=== PATIENT | female | born 1970 | race Caucasian/White ===

== ENCOUNTER 2020-03-03 13:56 | Outpatient (CLI) | payer OTHER, SELFPAY ==
--- NOTE | 2020-03-03 14:04 | XRR_ITS ---
PROCEDURE INFORMATION: Exam: XR Chest, 2 Views Exam date and time: 03/03/2020 2:18 PM Age: 49 years old Clinical indication: Cough and shortness of breath; Prior surgery; Surgery type: Left breast TECHNIQUE: Imaging protocol: XR of the chest Views: 2 views. COMPARISON: No relevant prior studies available. FINDINGS: Tubes, catheters and devices: Bilateral surgical clips overlying the inferior thorax. Lungs: Hyperinflation and interstitial prominence. No acute airspace disease. Pleural space: No pleural effusion. Heart/Mediastinum: No cardiomegaly. Vasculature: Ectasia of the thoracic aorta. Bones/joints: Diminished thoracic kyphosis. XR/XR chest 2V* [id number] IMPRESSION: Hyperinflation and interstitial prominence.
[2020-03-03 14:37] LABS: Basophils % 0.5 %; Eosinophils # 0.3 10^3/uL (0.0-0.8); Eosinophils % 3.9 %; Hematocrit 40.5 % (37.0-47.0); Hemoglobin 13.1 g/dL (11.5-15.3); Lymphocytes # 1.5 10^3/uL (0.8-4.8); Lymphocytes % 20.6 %; Mean Corpuscular HGB Conc 32.3 g/dL (30.0-36.0); Mean Corpuscular Hemoglobin 30.5 pg (28.0-34.0); Mean Corpuscular Volume 94.4 fL (81-99); Mean Platelet Volume 9.7 fL (7.4-10.4); Monocytes # 0.6 10^3/uL (0.2-0.9); Neutrophils # 4.95 10^3/uL (1.8-7.7); Neutrophils % 66.7 %; Nucleated Red Blood Cells % 0 %; Platelet Count 323 10^3/cmm (130-400); Red Blood Count 4.29 10^6/uL (4.1-5.3); Red Cell Distribution Width 12.6 % (12.1-15.1); White Blood Count 7.4 10^3/uL (4.0-10.0)
[2020-03-03 15:14] LABS: Alanine Aminotransferase 20 U/L (0-33); Albumin Level 3.9 g/dL (3.5-5.2); Alkaline Phosphatase 49 IU/L (35-105); Anion Gap 14.8 (5-19); Aspartate Amino Transferase 21 U/L (0-32); Blood Urea Nitrogen 10 mg/dL (6-20); Calcium 9.1 mg/dL (8.5-10.5); Carbon Dioxide 25 mmol/L (22-29); Chloride 102 mmol/L (98-107); Globulin 2.6 g/dL (1.3-4.6); Glomerular Filtration Rate 89.7 mL/min (90-130); Glucose 104 mg/dL (65-115); Osmolality Calculated 285 mOsm/kg (285-295); Potassium 3.8 mmol/L (3.5-5.1); Sodium 138 mmol/L (136-145); Total Bilirubin 0.2 mg/dL (0.15-1.2); Total Protein 6.5 g/dL (6.6-8.7)
[2020-03-04 15:57] LABS: Alternaria Alternata (M6) Ige <0.10 kU/L; Alternaria Class 0; Bermuda Class 0; Bermuda Grass (G2) Ige <0.10 kU/L; Cat Dander (E1) Ige <0.10 kU/L; Cat Dander Class 0; Common Ragweed (Short) (W1) Ig <0.10 kU/L; D. Farinae Class 0; Dermatophagoides Class 0; Dermatophagoides Farinae (D2) <0.10 kU/L; Dermatophagoides Pteronyssinus <0.10 kU/L; Dog Dander (E5) Ige <0.10 kU/L; Dog Dander Class 0; Elm (T8) Ige <0.10 kU/L; Elm Class 0; English Plantain (W9) Ige <0.10 kU/L; English Plantain Class 0; House Dust (Greer) (H1) Ige <0.10 kU/L; House Dust (Hollister- Stier) <0.10 kU/L; House Dust Class 0; Johnson Grass (G10) Ige <0.10 kU/L; Johnson Grass Cl 0; June Grass Class 0; June Grass(Kentucky Blue) (G8) <0.10 kU/L; Lamb'S Quarters (Goose Foot) <0.10 kU/L; Lamb'S Quarters Class 0; Maple (Box Elder) (T1) Ige <0.10 kU/L; Maple Class 0; Meadow Fescue (G4) Ige <0.10 kU/L; Meadow Fescue Class 0; Mucor Racemosus Class 0; Oak (T7) Ige <0.10 kU/L; Oak Class 0; Orchard Grass (Cocksfoot) (G3) <0.10 kU/L; Penicillium Class 0; Penicillium Notatum (M1) Ige <0.10 kU/L; Perennial Rye Grass (G5) Ige <0.10 kU/L; Perennial Rye Grass Class 0; Ragweeed Class 0; Rough Marsh Elder (W16) Ige <0.10 kU/L; Rough Marsh Elder Class 0; Sweet Vernal Class 0; Sweet Vernal Grass (G1) Ige <0.10 kU/L; Timothy Grass (G6) Ige <0.10 kU/L; Timothy Grass Class 0
[2020-03-05 15:52] LABS: Immunoglobulin E 95 kU/L (<OR=114)
[2020-03-05 16:23] LABS: Immunoglobulin E 94 kU/L (<OR=114)
[2020-03-08 17:08] LABS: Aspergillus Fumigatus, Igg Ab, 16.7 mg/L (<=102)
== END 2020-03-03 13:57 | disposition home or self-care (01) ==
LOC: RAD 14:00
PROVIDERS: PCP Nurse Practitioner Family; Visit Provider Internal Medicine Critical Care Medicine
DX: R06.02 Shortness of breath (principal); J45.909 Unspecified asthma, uncomplicated
CPT/HCPCS: 36415; 71046; 80053; 82785; 85025; 86003

== ENCOUNTER → 2020-03-10 11:31 | Outpatient (BNVA) | payer OTHER, SELFPAY | PROVIDERS: Family Provider Nurse Practitioner Family; Visit Provider Internal Medicine Critical Care Medicine | DX: Z11.59 Encounter for screening for other viral diseases (principal) | CPT/HCPCS: 87635 ==

== ENCOUNTER 2020-03-17 09:58 | Outpatient (CLI) | payer OTHER, SELFPAY ==
--- NOTE | 2020-03-17 10:33 | PFTS_ITS ---
Date of Study:03/17/20 Date of Dictation: MECHANICS: Forced vital capacity (FVC) is normal. Forced expiratory volume in one second (FEV1) is normal. FEV1/FVC is normal. FLOW VOLUME LOOP: Normal. LUNG VOLUMES: Total lung capacity (TLC) is elevated. Residual volume (RV) is elevated. DIFFUSING CAPACITY FOR CARBON MONOXIDE: Normal. INTERPRETATION: The pulmonary function tests are normal. The elevated total lung capacity and residual volume are nonspecific. Gas exchange (DLCO) is normal. MTDD
== END 2020-03-17 09:59 | disposition home or self-care (01) ==
LOC: RT 10:02
PROVIDERS: PCP Nurse Practitioner Family; Visit Provider Internal Medicine Critical Care Medicine
DX: R06.02 Shortness of breath (principal); J45.909 Unspecified asthma, uncomplicated
CPT/HCPCS: 94010; 94729

== ENCOUNTER 2020-06-15 13:20 | Outpatient (CLI) | payer OTHER, SELFPAY ==
--- NOTE | 2020-06-15 13:32 | MR_ITS ---
WS: [id number] MRI BRAIN WITH HIGH-RESOLUTION IMAGING THROUGH THE INTERNAL AUDITORY CANALS WITHOUT AND WITH CONTRAST HISTORY: TINNITUS, LEFT EAR COMPARISON: None available. TECHNIQUE: Multiplanar, multisequence imaging is performed through the brain. Additional 3 mm imaging performed in multiple planes through the internal auditory canal. Postcontrast imaging with 20 ml's of MultiHance. No acute intracranial hemorrhage, midline shift, edema or mass effect. Normal appearance of the brain. No prior infarcts or ischemic disease. No atrophy. Ventricles and extra-axial spaces are normal. No inferior displacement of cerebellar tonsils. Clivus and pituitary gland are normal. Internal and external auditory canals: Unremarkable. Cranial nerves VII and VIII complexes: Unremarkable. No enhancement or mass. Cerebellopontine angles: Normal. Paranasal sinuses: Normal. Mastoid air cells: Normal. Calvarium and scalp: Normal. Visualized picayune of Waters and dural venous sinuses demonstrate no abnormality. MR/MR iac's wo/w con* [id number] IMPRESSION: Normal MRI IACs.
== END 2020-06-15 13:21 | disposition home or self-care (01) ==
LOC: RADWPI 13:29
PROVIDERS: PCP Nurse Practitioner Family; Visit Provider Specialist
DX: H93.12 Tinnitus, left ear (principal)
CPT/HCPCS: 70553; A9577

== ENCOUNTER → 2020-07-12 09:31 | Outpatient (BNVA) | payer OTHER, SELFPAY | PROVIDERS: PCP Nurse Practitioner Family; Visit Provider Psychiatry & Neurology Psychiatry | DX: F43.12 Post-traumatic stress disorder, chronic (principal) | CPT/HCPCS: 90792 ==

== ENCOUNTER 2021-03-28 15:32 | Outpatient (CLI) | payer OTHER, SELFPAY ==
--- NOTE | 2021-03-28 | XR_ITS ---
WS: [id number] RIGHT FOOT: 2 VIEW(S) TECHNIQUE: AP and lateral. HISTORY: HEEL PAIN COMPARISON: None available. No acute fracture or dislocation. Normal tarsal/metatarsal alignment. No soft tissue abnormality or bone destruction. Moderate size calcaneal spur measures 9 mm. Mild pes planus. XR/XR foot RT 2V [id number] IMPRESSION: Moderate-sized calcaneal spur. Otherwise negative.
== END 2021-03-28 15:33 | disposition home or self-care (01) ==
PROVIDERS: PCP Nurse Practitioner Family; Visit Provider Nurse Practitioner Family
DX: M79.671 Pain in right foot; M77.31 Calcaneal spur, right foot
CPT/HCPCS: 73620

== ENCOUNTER 2021-04-11 11:20 | Outpatient (CLI) | payer OTHER, SELFPAY ==
--- NOTE | 2021-04-11 11:39 | XR_ITS ---
WS: [id number] FOOT RIGHT TECHNIQUE: 2 views of the right foot CLINICAL INFORMATION: HEEL PAIN COMPARISON: March 28, 2021 FINDINGS: No evidence of acute fracture or dislocation. Normal tarsal metatarsal alignment. Normal calcaneus. N ormal visualized talar dome. Degenerative narrowing first DIP joint. Osteopenia. Plantar calcaneal sp urring measuring 8 mm similar to previous. XR/XR foot RT 2V [id number] IMPRESSION: Plantar calcaneal spurring measuring 8 mm.
== END 2021-04-11 11:21 | disposition home or self-care (01) ==
PROVIDERS: PCP Nurse Practitioner Family; Visit Provider Nurse Practitioner Family
DX: F41.9 Anxiety disorder, unspecified (principal); M79.671 Pain in right foot; M77.31 Calcaneal spur, right foot
CPT/HCPCS: 73620

== ENCOUNTER 2023-04-07 14:11 | Emergency (ER) | payer OTHER, SELFPAY ==
[2023-04-07 14:14] VITALS: BP 203/146; PULSE 90; RESP 18; TEMP 37.2; O2SAT 97; BMI 37.0
--- NOTE | 2023-04-07 14:33 | ECG_ITS ---
[facility] Test Date: 2023-04-07 Pat Name: Della Davis Department: Room: Gender: Female [employer] Operation: : 1970 Requested By: Donaldo Collier Order Number: [id number] Americo MD: Evita Cuevas M.D. Measurements Intervals [place] Rate: 90 P: 35 IN: 167 QRS: 23 QRSD: 86 T: 45 QT: 338 QTc: 414 Interpretive Statements SINUS RHYTHM WITH OCCASIONAL SUPRAVENTRICULAR PREMATURE COMPLEXES POSSIBLE LEFT ATRIAL ENLARGEMENT [-0.1mV P-WAVE IN V1/V2] Compared to ECG 11/08/2016 10:10:51 T-wave abnormality no longer present Electronically Signed On 04-08-2023 21:53:43 LEVEL VIAL MARKER by Evita Cuevas M.D. [id number]
--- NOTE | 2023-04-07 16:15 | PC.PHAR ---
PT STATES SHE TAKES CARE OF HER OWN MEDICATIONS-PT STATES SHE JUST STARTED TAKING OZEMPIC ON Sunday04/06/23-PT STATES SHE ALSO GOT A SHINGLES AND FLU SHOT ON Sunday04/06/23-PT STATES SHE TAKES A ASPIRIN 325MG QAM BUT STATES TODAY SHE TOOK 4 TABS 1300MG-PT STATES SHE TAKES LOSARTAN 100MG QAM BUT STATES TODAY SHE TOOK 200MG-NOTES ARE MADE IN THE PHARMACY COMMENTS
--- NOTE | 2023-04-07 17:22 | W.ED.RECABL ---
HPI - Recheck/Abnormal Lab/Rx General: Chief Complaint: Recheck/Abnormal Lab/Rx Stated Complaint: bp high Time Seen by Provider: 04/07/23 16:45 History of Present Illness: 52-year-old female presents emergency department with complaints of elevated blood pressure. She states she was seen by her primary care provider 2 days ago and was advised that her blood pressure was elevated at that time. She states that a advised her that it was most likely secondary to whitecoat hypertension and they would monitor it. The patient states it is continued to be high throughout the day and she has had an intermittent headache. She states she did take it at home and it was elevated to a systolic above 200. She denies blurred vision, vertigo, nausea, vomiting. She does state that her headache at present is a dull generalized headache that is a 2 out of 10. She denies neck stiffness or neck pain. She denies nuchal rigidity. Review of Systems General: Reports: 10 or more systems reviewed and unremarkable except in HPI and below Neuro: Reports: headache(s) PFSH ED PFSH: Medical History (Updated 04/07/23 @ 19:22 by Donaldo Collier MD) Allergic rhinitis Breast mass Herpes simplex type 1 infection HTN (hypertension) Problems related to lack of adequate sleep Psychiatric care PTSD (post-traumatic stress disorder) Surgical History H/O abdominoplasty H/O breast augmentation History of hysterectomy Family History Mother Hypertension Father Hypertension Grandmother Diabetes Heart disease Social History Smoking and tobacco/nicotine status: never used tobacco/nicotine Second hand smoke exposure: No Alcohol intake: current Alcohol intake frequency: few times a week Substance/Drug Use: never Lives independently: Yes Household members: spouse Marital status: Current occupational status: unemployed Do you think of yourself as: Straight/Heterosexual Current gender identity: Female Physical Exam Narrative: EXAM NARRATIVE: Constitutional: the patient appears well nourished and with normal development. Vital signs reviewed as documented. HENMT: Normocephalic, atraumatic. External ears with normal appearance without drainage. Nose without drainage, normal appearance. Mucus membranes moist. Neck is supple, No jugular venous distension, trachea is midline, no appreciable carotid bruits. No lymphadenopathy. No meningeal signs. Flexion, extension and lateral rotation is without pain. Eyes: Pupils are equal, round, reactive to light and accomidation. No scleral icterus. Extra-ocular movement are intact. Thorax is symmetrical and with equal rise and fall with respirations. Resp: Lungs are clear to auscultation. No wheezes, rales, crackles or ronchi at present. Cardio: Regular rate and rhythm. Positive S1, S2. No appreciable murmurs, rubs or gallops. GI: Abdominal exam reveals normal bowel sounds to all quadrants. No organomegaly. No obvious palpable masses noted. No hepatomegaly appreciated. Soft, nontender to palpation. Extremity: Extremities are non-edematous and both femoral and pedal pulses are 2+ and equal bilaterally. Moves all extremities well, sensation in all extremities. Neuro: Alert and oriented x4, person, place, time and situation. Cranial nerves II through XII are grossly intact, there is no focal neurological deficits that I can appreciate at present. Motor strength in the upper and lower extremities are equal and bilateral 5/5. Psych: Cooperative, calm, normal thought process, appropriate judgment. Skin: No lesions, rashes. No gross abnormalities noted. Back: Symmetrical, no obvious deformity, No CVA tenderness Course Vital Signs: Vital signs: Vital Signs Temperature 99.0 F 04/07/23 14:14 Pulse Rate 88 04/07/23 18:59 Respiratory Rate 15 04/07/23 18:59 Blood Pressure 187/119 04/07/23 18:59 Pulse Oximetry 97 04/07/23 18:59 Oxygen Delivery Me thod Room Air 04/07/23 18:59 MDM - Recheck/Abnormal Lab/Rx Medical Decision Making Physical exam completed and documented laboratory evaluation to include CBC CMP patient presented with elevated blood pressure she states she did take an extra dose of her losartan which did not appear to help per the patient. She is is complaining of a generalized headache and I suspect this is most likely secondary to her uncontrolled hypertension. I will provide her p.o. clonidine and if needed IV antihypertensive medication. Medical Records I reviewed the patient's medical records. Lab Data I reviewed the patient's lab results. 04/07/23 18:08 04/07/23 18:08 Laboratory Results WBC 9.14 10^3/uL (3.29-11.43) 04/07/23 18:08 RBC 4.91 10^6/uL (3.85-5.65) 04/07/23 18:08 Hgb 14.40 g/dL (11.27-16.99) 04/07/23 18:08 Hct 43.9 % (36-47) 04/07/23 18:08 MCV 89.4 fl (85-98) 04/07/23 18: MCH 29.3 pg (27-33) 04/07/23 18:08 MCHC 32.8 g/dL (30-55) 04/07/23 18:08 RDW 12.4 % (12.1-15.1) 04/07/23 18:08 Plt Count 311 10^3/cmm (157-399) 04/07/23 18:08 MPV 9.6 fL (7.4-10.4) 04/07/23 18:08 Neut % (Auto) 75.3 % 04/07/23 18:08 Lymph % (Auto) 14.9 % 04/07/23 18:08 Garrard % (Auto) 8.3 % 04/07/23 18:08 Eos % (Auto) 0.9 % 04/07/23 18:08 Baso % (Auto) 0.3 % 04/07/23 18:08 Neut # (Auto) 6.88 10^3/uL (1.8-7.7) 04/07/23 18:08 Lymph # (Auto) 1.4 10^3/uL (0.8-4.8) 04/07/23 18:08 Garrard # (Auto) 0.8 10^3/uL (0.2-0.9) 04/07/23 18:08 Eos # (Auto) 0.1 10^3/uL (0.0-0.8) 04/07/23 18:08 Baso # (Auto) 0.0 10^3/uL (0.0-0.1) 04/07/23 18:08 Nucleated RBC % (auto) 0 % 04/07/23 18: Nucleated RBCs # 0.0 /100WBC 04/07/23 18:08 Sodium 138 mmol/L (136-145) 04/07/23 18:08 Potassium 4.0 mmol/L (3.5-5.1) 04/07/23 18:08 Chloride 101 mmol/L (98-107) 04/07/23 18:08 Carbon Dioxide 24 mmol/L (22-29) 04/07/23 18:08 Anion Gap 17.0 (5-19) 04/07/23 18:08 BUN 12 mg/dL (6-20) 04/07/23 18:08 Creatinine 0.7 mg/dL (0.5-0.9) 04/07/23 18:08 GFR Calculation 88.6 mL/min (90-130) L 04/07/23 18:08 Glucose 93 mg/dL (65-115) 04/07/23 18:08 Calculated Osmolality 285 mOsm/kg (285-295) 04/07/23 18:08 Calcium 9.4 mg/dL (8.5-10.5) 04/07/23 18:08 Total Bilirubin 0.3 mg/dL (0.15-1.2) 04/07/23 18:08 AST 20 U/L (0-32) 04/07/23 18:08 ALT 23 U/L (0-33) 04/07/23 18:08 Alkaline Phosphatase 52 U/L (35-105) 04/07/23 18:08 Total Protein 7.8 g/dL (6.6-8.7) 04/07/23 18:08 Albumin 4.4 g/dL (3.5-5.2) 04/07/23 18:08 Globulin 3.4 g/dL (1.3-4.6) 04/07/23 18:08 No radiology studies performed this visit Discharge Plan Discharge Patient Disposition: Home Clinical Impression: Hypertension Condition: Stable Prescriptions: New hydrochlorothiazide 12.5 mg tablet 12.5 mg PO DAILY Qty: 30 0RF No Action omeprazole 20 mg capsule,delayed release(DR/EC) 20 mg PO DAILY PRN (Reason: Heartburn) sumatriptan succinate 100 mg tablet See Rx Instructions PO .COMPLEX Rx Instructions: take 1 tab at onset of headache; if no relief, may repeat 1 tab after at least 2 hrs; max = 2 tabs/24 hrs PO alprazolam 0.25 mg tablet 0.25 mg PO BID PRN (Reason: anxiety) 30 Days Qty: 45 4RF propranolol 10 mg tablet 10 mg PO TID trazodone 50 mg tablet 25 mg PO BEDTIME losartan 100 mg tablet 100 mg PO QAM Fish Oil Concentrate 1,000 mg Capsule 1,000 mg PO QAM aspirin 325 mg Tablet 325 mg PO DAILY Acidophilus 500 million cell Tablet 500 mmu cells PO QAM Glucosamine Chondroitin 550-30-1 mg Capsule 1 cap PO QAM Ozempic 0.25 mg or 0.5 mg (2 mg/3 mL) Pen Injector 0.25 mg SUBCUT Q7D Rx Instructions: ON SUNDAY duloxetine 60 mg capsule,delayed release(DR/EC) 60 mg PO BEDTIME Discharge Orders: Discharge ED (Routine); Ordered 04/07/23 Ordered By: Donaldo Collier Referrals: Tiffany Kimbrough NP [Primary Care Provider] - Discharge Diet: Advance as tolerated Discharge Activity: Resume usual activity Patient Instructions: Opioid Safety, Pain Management Activity Restrictions/Additional Instructions: Activity Restrictions/Additional Instructions: Thank you for choosing [facility] for your healthcare needs today. Please realize that you were seen in the Emergency Department and that we are providing you with an emergency medical screening exam and this may not be complete and all inclusive of all the testing and or medical work-up that you may need to determine your ailment or severity of your illness. It is very important that you follow-up as instructed with your Primary care provider or Specialist for additional evaluation and to discuss your medical treatment plan. You may return to the Emergency Department should you have concerns or if your condition changes or worsens in any way. Coding Level of Care Code ED [employer]anner for Gifty Carvajal
[2023-04-07 17:34] VITALS: BP 199/136
[2023-04-07] MEDS: cloNIDine 0.1 mg Tablet PO (17:34)
[2023-04-07 18:16] LABS: Basophils % 0.3 %; Eosinophils # 0.1 10^3/uL (0.0-0.8); Eosinophils % 0.9 %; Hematocrit 43.9 % (36-47); Lymphocytes # 1.4 10^3/uL (0.8-4.8); Lymphocytes % 14.9 %; Mean Corpuscular HGB Conc 32.8 g/dL (30-55); Mean Corpuscular Hemoglobin 29.3 pg (27-33); Mean Corpuscular Volume 89.4 fl (85-98); Mean Platelet Volume 9.6 fL (7.4-10.4); Monocytes # 0.8 10^3/uL (0.2-0.9); Monocytes % 8.3 %; Neutrophils # 6.88 10^3/uL (1.8-7.7); Neutrophils % 75.3 %; Nucleated Red Blood Cells % 0 %; Platelet Count 311 10^3/cmm (157-399); Red Blood Count 4.91 10^6/uL (3.85-5.65); Red Cell Distribution Width 12.4 % (12.1-15.1); White Blood Count 9.14 10^3/uL (3.29-11.43)
[2023-04-07 18:33] LABS: Alanine Aminotransferase 23 U/L (0-33); Albumin Level 4.4 g/dL (3.5-5.2); Alkaline Phosphatase 52 U/L (35-105); Aspartate Amino Transferase 20 U/L (0-32); Blood Urea Nitrogen 12 mg/dL (6-20); Calcium 9.4 mg/dL (8.5-10.5); Carbon Dioxide 24 mmol/L (22-29); Chloride 101 mmol/L (98-107); Globulin 3.4 g/dL (1.3-4.6); Glomerular Filtration Rate 88.6 mL/min (90-130); Glucose 93 mg/dL (65-115); Osmolality Calculated 285 mOsm/kg (285-295); Sodium 138 mmol/L (136-145); Total Bilirubin 0.3 mg/dL (0.15-1.2); Total Protein 7.8 g/dL (6.6-8.7)
[2023-04-07 18:59] VITALS: BP 187/119; PULSE 88; RESP 15; O2SAT 97
[2023-04-07] MEDS: hyDRALAzine 20 mg/mL INJ 1 mL IVP (19:01)
--- NOTE | 2023-04-07 19:19 | PC.NURSE ---
took over pt care at 1914, report taken from LOVE Hogue
[2023-04-07 19:48] VITALS: BP 157/106; PULSE 101; RESP 18; O2SAT 100
[2023-04-07 19:50] VITALS: BP 157/106; PULSE 101; O2SAT 100
== END 2023-04-07 19:45 | disposition home or self-care (01) ==
PROVIDERS: Emergency Provider Internal Medicine; PCP Nurse Practitioner Family
DX: I10 Essential (primary) hypertension (principal); Z79.82 Long term (current) use of aspirin
CPT/HCPCS: 80053; 85025; 93005; 96374; 99284; J0360

== ENCOUNTER 2024-05-01 23:07 | Observation (INO) | payer OTHER, SELFPAY ==
--- NOTE | 2024-05-01 23:18 | ECG_ITS ---
[facility] Test Date: 2024-05-01 Pat Name: Della Davis Department: Room: Gender: Female [employer] Developer: : 1970 Requested By: Cain Cee Order Number: [id number] Driscoll MD: Antonio Fortune M.D. Measurements Intervals [place] Rate: 129 P: 0 DC: 0 QRS: 45 QRSD: 88 T: 78 QT: 301 QTc: 442 Interpretive Statements SINUS TACHYCARDIA MODERATE ST DEPRESSION [0.05+ mV ST DEPRESSION] Compared to ECG 04/07/2023 14:33:02 ST (T wave) deviation now present Electronically Signed On 05-02-2024 09:30:20 PAPER GLUING OPERATOR by Antonio Fortune M.D. [email or web address]
[2024-05-01 23:24] LABS: Glucose Point of Care 185 mg/dL (70-110)
[2024-05-01 23:39] LABS: Basophils # 0.1 10^3/uL (0.0-0.1); Basophils % 0.2 %; Eosinophils # 0.5 10^3/uL (0.0-0.8); Eosinophils % 1.8 %; Hematocrit 55.6 % (36-47); Lymphocytes # 4.7 10^3/uL (0.8-4.8); Lymphocytes % 19.2 %; Mean Corpuscular HGB Conc 33.3 g/dL (30-55); Mean Corpuscular Hemoglobin 29.4 pg (27-33); Mean Corpuscular Volume 88.4 fl (85-98); Mean Platelet Volume 9.4 fL (7.4-10.4); Monocytes # 0.9 10^3/uL (0.2-0.9); Monocytes % 3.5 %; Neutrophils # 18.27 10^3/uL (1.8-7.7); Neutrophils % 74.8 %; Nucleated Red Blood Cells % 0 %; Platelet Count 436 10^3/cmm (157-399); Red Blood Count 6.29 10^6/uL (3.85-5.65); Red Cell Distribution Width 12.8 % (12.1-15.1); White Blood Count 24.47 10^3/uL (3.29-11.43)
[2024-05-01] MEDS: dilTIAZem 5 mg/mL SDV 5 mL 10 MG IVP (23:45)
[2024-05-01] MEDS: sodium chloride 0.9% 1,000 ML 999 ML IV (23:45)
--- NOTE | 2024-05-01 23:54 | ED_ITS ---
Documented by User: Cain Cee DO 05/02/24 05:38 HPI - General Adult 2 General: Chief complaint: Abdominal Pain Stated complaint: Going In and Out Time Seen by Provider: 05/01/24 23:21 History of Present Illness: Patient presents to the ER complaining of almost passing in and out. Patient said she ate some clam chowder and took a shot of whiskey and then took a Dulcolax because she was constipated. Then she felt she had to go to the bathroom so she got up and went inside on the toilet where she got lightheaded and dizzy and warm all over thought she was getting a rash that she took a Benadryl did not get much better so that she took another Benadryl. Patient said usually 1 Benadryl knocks her out. Then she started sick in her stomach and vomited x 1. Upon arrival patient's heart rate was 112 bpm blood pressure was in the 60s and patient was in a flutter with RVR. Related Data Home Medications Medication Instructions Recorded Confirmed omeprazole 20 mg capsule,delayed 20 mg PO DAILY PRN Heartburn 09/30/20 05/02/24 release sumatriptan succinate 100 mg tablet See Rx Instructions PO .COMPLEX 07/04/21 05/02/24 aspirin 325 mg tablet 325 mg PO DAILY 04/07/23 05/02/24 glucosamine sulf dipot 2 cap PO QAM 04/07/23 05/02/24 chlr,msm,chond 550 mg-C 30 mg-ina 1 mg capsule (Glucosamine Chondroitin) losartan 100 mg tablet 100 mg PO QAM 04/07/23 05/02/24 propranolol 10 mg tablet 10 mg PO TID 04/07/23 05/02/24 diindolylmethane 150 mg-broccoli 1 cap PO DAILY 05/02/24 05/02/24 seed extract 30 mg capsule ibuprofen 200 mg tablet (Advil) 600 mg PO Q6H PRN Pain 05/02/24 05/02/24 magnesium L-threonate 48 mg 48 mg PO DAILY 05/02/24 05/02/24 magnesium (667 mg) capsule Previous Rx's Medication Instructions Recorded hydrochlorothiazide 12.5 mg tablet 12.5 mg PO DAILY #30 tabs 04/07/23 alprazolam 0.25 mg tablet 0.25 mg PO BID PRN anxiety 30 days 06/25/24 #45 tabs Allergies Allergy/AdvReac Type Severity Reaction Status Date / Time hydrocodone AdvReac Severe ADR-Vomitin Verified 04/07/23 16:07 g PFSH ED 2 PFSH: Medical History (Updated 05/02/24 @ 08:29 by Michel Wiggins MD) Psychiatric care Problems related to lack of adequate sleep PTSD (post-traumatic stress disorder) HTN (hypertension) Allergic rhinitis Herpes simplex type 1 infection Breast mass Surgical History History of hysterectomy H/O abdominoplasty H/O breast augmentation Family History Mother Hypertension Father Hypertension Grandmother Diabetes Heart disease Social History Smoking and tobacco/nicotine status: never used tobacco/nicotine Second hand smoke exposure: No Alcohol intake: current Alcohol intake frequency: few times a week Substance/Drug Use: never Lives independently: Yes Household members: spouse Marital status: Current occupational status: unemployed Do you think of yourself as: Straight/Heterosexual Current gender identity: Female Physical Exam 2 Const: COMMON NORMALS: average body habitus, healthy appearing and well nourished HENMT: COMMON NORMALS: normocephalic, atraumatic, hearing grossly normal bilaterally, external ears normal, Normal external nose present and moist oral mucous membranes HEAD & SCALP: normocephalic and atraumatic NOSE: Normal external nose present EXTERNAL EAR: Yes external ears normal Eye: COMMON NORMALS: Equal, round and reactive pupils present, EOMs intact bilaterally, conjunctivae normal and no scleral icterus CONJUNCTIVA: Yes conjunctivae normal PUPIL: Yes Equal, round and reactive pupils present Neck/C-Spine: COMMON NORMALS: full ROM, no lymphadenopathy, supple, no meningeal signs, no JVD and Thyroid normal THYROID: Thyroid normal Chest: COMMONS NORMALS: normal inspection of the chest and normal palpation of entire chest wall Resp: COMMON NORMALS: normal respiratory effort, No retractions, No use of accessory muscles and clear to auscultation bilaterally AUSCULTATION: clear to auscultation bilaterally Cardio: COMMON NORMALS: no JVD, S1 normal heart sound present, S2 normal heart sound present, No gallops present (Cardio) and No clicks present (Cardio); negative for regular rate (Irregularly irregular tachycardic rhythm upon arrival) and negative for regular rhythm RATE: abnormal rate (Irregularly irregular tachycardic rhythm upon arrival) RHYTHM: abnormal rhythm HEART SOUNDS: S1 normal heart sound present and S2 normal heart sound present GI: COMMON NORMALS: Normal to inspection, nondistended, normoactive bowel sounds present, Soft to palpation, non-tender, No hepatosplenomegaly present and no masses PALPATION: Yes Soft to palpation and Yes No hepatosplenomegaly present Neuro: MENINGEAL SIGNS: Yes no meningeal signs Course 2 Vital Signs: Vital signs: Vital Signs Temperature 98.1 F 05/02/24 06:00 Pulse Rate 85 05/02/24 08:06 Respiratory Rate 18 05/02/24 06:00 Blood Pressure 138/88 05/02/24 08:06 Pulse Oximetry 93 05/02/24 08:06 Oxygen Delivery Me thod Room Air 05/02/24 06:00 [facility] - General Adult Medical Records I reviewed the patient's medical records. Lab Data I reviewed the patient's lab results. 05/02/24 05:30 05/02/24 05:30 Radiology Impressions Chest X-Ray 05/02/24 00:15 IMPRESSION: No acute abnormality demonstrated. Laboratory Results WBC 23.47 10^3/uL (3.29-11.43) H 05/02/24 05:30 RBC 4.87 10^6/uL (3.85-5.65) 05/02/24 05:30 Hgb 14.50 g/dL (11.27-16.99) 05/02/24 05:30 Hct 43.9 % (36-47) 05/02/24 05:30 MCV 90.1 fl (85-98) 05/02/24 05:30 MCH 29.8 pg (27-33) 05/02/24 05:30 MCHC 33.0 g/dL (30-55) 05/02/24 05:30 RDW 13.0 % (12.1-15.1) 05/02/24 05:30 Plt Count 302 10^3/cmm (157-399) D 05/02/24 05:30 MPV 9.2 fL (7.4-10.4) 05/02/24 05:30 Neut % (Auto) 91.0 % 05/02/24 05:30 Lymph % (Auto) 3.4 % 05/02/24 05:30 [place] % (Auto) 4.7 % 05/02/24 05:30 Eos % (Auto) 0.3 % 05/02/24 05:30 Baso % (Auto) 0.2 % 05/02/24 05:30 Neut # (Auto) 21.36 10^3/uL (1.8-7.7) H 05/02/24 05:30 Lymph # (Auto) 0.8 10^3/uL (0.8-4.8) 05/02/24 05:30 [place] # (Auto) 1.1 10^3/uL (0.2-0.9) H 05/02/24 05:30 Eos # (Auto) 0.1 10^3/uL (0.0-0.8) 05/02/24 05:30 Baso # (Auto) 0.0 10^3/uL (0.0-0.1) 05/02/24 05:30 Nucleated RBC % (auto) 0 % 05/02/24 05:30 Nucleated RBCs # 0.0 /100WBC 05/02/24 05:30 Sodium 139 mmol/L (136-145) 05/02/24 05:30 Potassium 3.6 mmol/L (3.5-5.1) 05/02/24 05:30 Chloride 108 mmol/L (98-107) H 05/02/24 05:30 Carbon Dioxide 20 mmol/L (22-29) L 05/02/24 05:30 Anion Gap 14.6 (5-19) 05/02/24 05:30 BUN 14 mg/dL (6-20) 05/02/24 05:30 Creatinine 1.1 mg/dL (0.5-0.9) H 05/02/24 05:30 GFR Calculation 52.4 mL/min (90-130) L 05/02/24 05:30 Glucose 131 mg/dL (65-115) H 05/02/24 05:30 POC Glucose 185 mg/dL (70-110) H 05/01/24 23:21 Calculated Osmolality 290 mOsm/kg (285-295) 05/02/24 05:30 Lactic Acid 4.4 mmol/L (0.5-2.2) H* 05/01/24 23:00 Lactic Acid (Sepsis) 2.6 mmol/L (0.5-2.2) H 05/02/24 01:14 Calcium 7.4 mg/dL (8.5-10.5) L 05/02/24 05:30 Magnesium 2.2 mg/dL (1.7-2.3) 05/01/24 23:30 Total Bilirubin 0.3 mg/dL (0.15-1.2) 05/01/24 23:30 AST 26 U/L (0-32) 05/01/24 23:30 ALT 21 U/L (0-33) 05/01/24 23:30 Alkaline Phosphatase 52 U/L (35-105) 05/01/24 23:30 Troponin T Baseline 10 ng/L (0-10) 05/01/24 23:30 Troponin T 120 Minute 38.32 ng/L (0-10) H 05/02/24 01:14 Delta Troponin T 28.32 ABS# (0-10) H* 05/02/24 01:14 Troponin T Hi Sens 6Hr 70.80 ng/L (0-10) H 05/02/24 05:30 Troponin T Hi Sens 6Hr Delta 60.80 ng/L (0-12) H* 05/02/24 05:30 Total Protein 6.7 g/dL (6.6-8.7) 05/01/24 23:30 Albumin 4.2 g/dL (3.5-5.2) 05/01/24 23:30 Globulin 2.5 g/dL (1.3-4.6) 05/01/24 23:30 Lipase 24 U/L (13-60) 05/02/24 05:30 Procalcitonin 0.04 ng/mL (0-0.5) 05/01/24 23:00 Urine Color Dark yellow (Yellow) A 05/02/24 03:42 Urine Appearance Cloudy (CLEAR) A 05/02/24 03:42 Urine pH 6.0 (5-7) 05/02/24 03:42 Ur Specific [place] 1.018 (1.005-1.030) 05/02/24 03:42 Urine Protein 2+ (Negative) A 05/02/24 03:42 Urine Glucose (UA) Trace (Normal) H 05/02/24 03:42 Urine Ketones Trace (Negative) 05/02/24 03:42 Urine Blood Negative (Negative) 05/02/24 03:42 Urine Nitrate Negative (Negative) 05/02/24 03:42 Urine Bilirubin Negative (Negative) 05/02/24 03:42 Urine Urobilinogen 1.0 mg/dL (Negative) 05/02/24 03:42 Ur Leukocyte Esterase Trace (Negative) A 05/02/24 03:42 Urine RBC 0-2 /hpf (0-2) 05/02/24 03:42 Urine WBC 11-20 /hpf (0-5) H 05/02/24 03:42 Ur Squamous Epith Cells 11-20 /hpf (0-5) 05/02/24 03:42 Amorphous Sediment Not Reportable 05/02/24 03:42 Urine Bacteria None seen /hpf (NONE) 05/02/24 03:42 Hyaline Casts 56.26 /lpf 05/02/24 03:42 Urine Opiates Screen Negative ng/mL (Negative) 05/02/24 03:42 Ur Barbiturates Screen Negative ng/mL (Negative) 05/02/24 03:42 Ur Phencyclidine Scrn Negative ng/mL (Negative) 05/02/24 03:42 Ur Amphetamines Screen Positive ng/mL (Negative) H 05/02/24 03:42 U Benzodiazepines Scrn Negative ng/mL (Negative) 05/02/24 03:42 Urine Cocaine Screen Negative ng/mL (Negative) 05/02/24 03:42 U Marijuana (THC) Screen Negative ng/mL (Negative) 05/02/24 03:42 Ethyl Alcohol < 10 mg/dL (0-10) 05/01/24 23:30 All radiology interpretation(s) finalized by discharge Discharge Plan Discharge Patient Disposition: Admitted As Inpatient Admit Provider: Carl Olivares Clinical Impression: Non-ST elevation AR (NSTEMI) Condition: Stable Coding Level of Care Code ED Cabinet Professional for Chg Fwd Documented by User: Michel Wiggins MD 05/02/24 08:29 HPI - General Adult 2 General: Chief complaint: Abdominal Pain Stated complaint: Going In and Out Time Seen by Provider: 05/01/24 23:21 Related Data Home Medications Medication Instructions Recorded Confirmed omeprazole 20 mg capsule,delayed 20 mg PO DAILY PRN Heartburn 09/30/20 05/02/24 release sumatriptan succinate 100 mg tablet See Rx Instructions PO .COMPLEX 07/04/21 05/02/24 aspirin 325 mg tablet 325 mg PO DAILY 04/07/23 05/02/24 glucosamine sulf dipot 2 cap PO QAM 04/07/23 05/02/24 chlr,msm,chond 550 mg-C 30 mg-ina 1 mg capsule (Glucosamine Chondroitin) losartan 100 mg tablet 100 mg PO QAM 04/07/23 05/02/24 propranolol 10 mg tablet 10 mg PO TID 04/07/23 05/02/24 diindolylmethane 150 mg-broccoli 1 cap PO DAILY 05/02/24 05/02/24 seed extract 30 mg capsule ibuprofen 200 mg tablet (Advil) 600 mg PO Q6H PRN Pain 05/02/24 05/02/24 magnesium L-threonate 48 mg 48 mg PO DAILY 05/02/24 05/02/24 magnesium (667 mg) capsule Previous Rx's Medication Instructions Recorded hydrochlorothiazide 12.5 mg tablet 12.5 mg PO DAILY #30 tabs 04/07/23 alprazolam 0.25 mg tablet 0.25 mg PO BID PRN anxiety 30 days 11/13/23 #45 tabs Allergies Allergy/AdvReac Type Severity Reaction Status Date / Time hydrocodone AdvReac Severe ADR-Vomitin Verified 04/07/23 16:07 g PFSH ED 2 PFSH: Medical History (Updated 05/02/24 @ 08:29 by Michel Wiggins MD) Psychiatric care Problems related to lack of adequate sleep PTSD (post-traumatic stress disorder) HTN (hypertension) Allergic rhinitis Herpes simplex type 1 infection Breast mass Surgical History History of hysterectomy H/O abdominoplasty H/O breast augmentation Family History Mother Hypertension Father Hypertension Grandmother Diabetes Heart disease Social History Smoking and tobacco/nicotine status: never used tobacco/nicotine Second hand smoke exposure: No Alcohol intake: current Alcohol intake frequency: few times a week Substance/Drug Use: never Lives independently: Yes Household members: spouse Marital status: Current occupational status: unemployed Do you think of yourself as: Straight/Heterosexual Current gender identity: Female Course 2 Vital Signs: Vital signs: Vital Signs Temperature 98.1 F 05/02/24 06:00 Pulse Rate 85 05/02/24 08:06 Respiratory Rate 18 05/02/24 06:00 Blood Pressure 138/88 05/02/24 08:06 Pulse Oximetry 93 05/02/24 08:06 Oxygen Delivery Me thod Room Air 05/02/24 06:00 MDM - General Adult Medical Decision Making sd patient presented here with altered mental status patient originally was hypotensive patient originally seen by Dr. Calderon did give her IV fluids patient's been given antibiotics she does have elevated troponins given Lovenox as well I did speak to patient she is now awake and alert she has no complaints at this time I spoke to hospitalist will admit at this time for NSTEMI Lab Data 05/02/24 05:30 05/02/24 05:30 Radiology Impressions Chest X-Ray 05/02/24 00:15 IMPRESSION: No acute abnormality demonstrated. Laboratory Results WBC 23.47 10^3/uL (3.29-11.43) H 05/02/24 05:30 RBC 4.87 10^6/uL (3.85-5.65) 05/02/24 05:30 Hgb 14.50 g/dL (11.27-16.99) 05/02/24 05:30 Hct 43.9 % (36-47) 05/02/24 05:30 MCV 90.1 fl (85-98) 05/02/24 05:30 MCH 29.8 pg (27-33) 05/02/24 05:30 MCHC 33.0 g/dL (30-55) 05/02/24 05:30 RDW 13.0 % (12.1-15.1) 05/02/24 05:30 Plt Count 302 10^3/cmm (157-399) D 05/02/24 05:30 MPV 9.2 fL (7.4-10.4) 05/02/24 05:30 Neut % (Auto) 91.0 % 05/02/24 05:30 Lymph % (Auto) 3.4 % 05/02/24 05:30 [place] % (Auto) 4.7 % 05/02/24 05:30 Eos % (Auto) 0.3 % 05/02/24 05:30 Baso % (Auto) 0.2 % 05/02/24 05:30 Neut # (Auto) 21.36 10^3/uL (1.8-7.7) H 05/02/24 05:30 Lymph # (Auto) 0.8 10^3/uL (0.8-4.8) 05/02/24 05:30 [place] # (Auto) 1.1 10^3/uL (0.2-0.9) H 05/02/24 05:30 Eos # (Auto) 0.1 10^3/uL (0.0-0.8) 05/02/24 05:30 Baso # (Auto) 0.0 10^3/uL (0.0-0.1) 05/02/24 05:30 Nucleated RBC % (auto) 0 % 05/02/24 05:30 Nucleated RBCs # 0.0 /100WBC 05/02/24 05:30 Sodium 139 mmol/L (136-145) 05/02/24 05:30 Potassium 3.6 mmol/L (3.5-5.1) 05/02/24 05:30 Chloride 108 mmol/L (98-107) H 05/02/24 05:30 Carbon Dioxide 20 mmol/L (22-29) L 05/02/24 05:30 Anion Gap 14.6 (5-19) 05/02/24 05:30 BUN 14 mg/dL (6-20) 05/02/24 05:30 Creatinine 1.1 mg/dL (0.5-0.9) H 05/02/24 05:30 GFR Calculation 52.4 mL/min (90-130) L 05/02/24 05:30 Glucose 131 mg/dL (65-115) H 05/02/24 05:30 POC Glucose 185 mg/dL (70-110) H 05/01/24 23:21 Calculated Osmolality 290 mOsm/kg (285-295) 05/02/24 05:30 Lactic Acid 4.4 mmol/L (0.5-2.2) H* 05/01/24 23:00 Lactic Acid (Sepsis) 2.6 mmol/L (0.5-2.2) H 05/02/24 01:14 Calcium 7.4 mg/dL (8.5-10.5) L 05/02/24 05:30 Magnesium 2.2 mg/dL (1.7-2.3) 05/01/24 23:30 Total Bilirubin 0.3 mg/dL (0.15-1.2) 05/01/24 23:30 AST 26 U/L (0-32) 05/01/24 23:30 ALT 21 U/L (0-33) 05/01/24 23:30 Alkaline Phosphatase 52 U/L (35-105) 05/01/24 23:30 Troponin T Baseline 10 ng/L (0-10) 05/01/24 23:30 Troponin T 120 Minute 38.32 ng/L (0-10) H 05/02/24 01:14 Delta Troponin T 28.32 ABS# (0-10) H* 05/02/24 01:14 Troponin T Hi Sens 6Hr 70.80 ng/L (0-10) H 05/02/24 05:30 Troponin T Hi Sens 6Hr Delta 60.80 ng/L (0-12) H* 05/02/24 05:30 Total Protein 6.7 g/dL (6.6-8.7) 05/01/24 23:30 Albumin 4.2 g/dL (3.5-5.2) 05/01/24 23:30 Globulin 2.5 g/dL (1.3-4.6) 05/01/24 23:30 Lipase 24 U/L (13-60) 05/02/24 05:30 Procalcitonin 0.04 ng/mL (0-0.5) 05/01/24 23:00 Urine Color Dark yellow (Yellow) A 05/02/24 03:42 Urine Appearance Cloudy (CLEAR) A 05/02/24 03:42 Urine pH 6.0 (5-7) 05/02/24 03:42 Ur Specific [place] 1.018 (1.005-1.030) 05/02/24 03:42 Urine Protein 2+ (Negative) A 05/02/24 03:42 Urine Glucose (UA) Trace (Normal) H 05/02/24 03:42 Urine Ketones Trace (Negative) 05/02/24 03:42 Urine Blood Negative (Negative) 05/02/24 03:42 Urine Nitrate Negative (Negative) 05/02/24 03:42 Urine Bilirubin Negative (Negative) 05/02/24 03:42 Urine Urobilinogen 1.0 mg/dL (Negative) 05/02/24 03:42 Ur Leukocyte Esterase Trace (Negative) A 05/02/24 03:42 Urine RBC 0-2 /hpf (0-2) 05/02/24 03:42 Urine WBC 11-20 /hpf (0-5) H 05/02/24 03:42 Ur Squamous Epith Cells 11-20 /hpf (0-5) 05/02/24 03:42 Amorphous Sediment Not Reportable 05/02/24 03:42 Urine Bacteria None seen /hpf (NONE) 05/02/24 03:42 Hyaline Casts 56.26 /lpf 05/02/24 03:42 Urine Opiates Screen Negative ng/mL (Negative) 05/02/24 03:42 Ur Barbiturates Screen Negative ng/mL (Negative) 05/02/24 03:42 Ur Phencyclidine Scrn Negative ng/mL (Negative) 05/02/24 03:42 Ur Amphetamines Screen Positive ng/mL (Negative) H 05/02/24 03:42 U Benzodiazepines Scrn Negative ng/mL (Negative) 05/02/24 03:42 Urine Cocaine Screen Negative ng/mL (Negative) 05/02/24 03:42 U Marijuana (THC) Screen Negative ng/mL (Negative) 05/02/24 03:42 Ethyl Alcohol < 10 mg/dL (0-10) 05/01/24 23:30 Discharge Plan Discharge Patient Disposition: Admitted As Inpatient Admit Provider: Carl Olivares Clinical Impression: Non-ST elevation AR (NSTEMI) Condition: Stable Coding Level of Care Code ED Cabinet Professional for Gifty Carvajal
[2024-05-01 23:59] LABS: Troponin(5th) Baseline 10 ng/L (0-10)
[2024-05-02] VITALS (94 sets, daily range): BP systolic 66–190; BP diastolic 39–121; PULSE 71–112; RESP 13–25; TEMP 34.2–37.7; O2SAT 93–100; BMI 32.8; BMI 33.1
[2024-05-02 00:02] LABS: Alanine Aminotransferase 21 U/L (0-33); Albumin Level 4.2 g/dL (3.5-5.2); Alkaline Phosphatase 52 U/L (35-105); Anion Gap 23.4 (5-19); Aspartate Amino Transferase 26 U/L (0-32); Blood Urea Nitrogen 12 mg/dL (6-20); Calcium 9.6 mg/dL (8.5-10.5); Carbon Dioxide 16 mmol/L (22-29); Chloride 101 mmol/L (98-107); Globulin 2.5 g/dL (1.3-4.6); Glomerular Filtration Rate 52.4 mL/min (90-130); Glucose 171 mg/dL (65-115); Magnesium 2.2 mg/dL (1.7-2.3); Osmolality Calculated 288 mOsm/kg (285-295); Potassium 3.4 mmol/L (3.5-5.1); Sodium 137 mmol/L (136-145); Total Bilirubin 0.3 mg/dL (0.15-1.2); Total Protein 6.7 g/dL (6.6-8.7)
[2024-05-02 00:02] LABS: Lactic Sepsis W/Reflex 4.4 mmol/L (0.5-2.2); Lipase 59 U/L (13-60)
[2024-05-02 00:03] LABS: Alcohol Level < 10 mg/dL (0-10)
--- NOTE | 2024-05-02 00:15 | XRR_ITS ---
PROCEDURE INFORMATION: Exam: XR Chest Exam date and time: 05/02/2024 12:12 AM Age: 53 years old Clinical indication: Shortness of breath; Additional info: Tachycardia TECHNIQUE: Imaging protocol: Radiologic exam of the chest. Views: 1 view. COMPARISON: CR XR chest 2V* [id number] 03/03/2020 2:16 PM FINDINGS: Lungs: No significant or acute findings. No consolidation. Pleural spaces: No significant costophrenic angle blunting. No pneumothorax. Heart/Mediastinum: Heart size is normal. Bones/joints: No acute osseous abnormality. Other findings: Patient's underwire bra remains in place. XR/XR chest 1V portable [id number] IMPRESSION: No acute abnormality demonstrated.
[2024-05-02 00:28] LABS: Procalcitonin 0.04 ng/mL (0-0.5)
[2024-05-02] MEDS: SODIUM CHLORIDE 0.9% 2124 ML IV (00:30)
[2024-05-02] MEDS: piperacillin-tazobactam 3.375 GM in sodium chloride 0.9% (plus) 50 ML IV (01:18)
--- NOTE | 2024-05-02 01:23 | ECG_ITS ---
[email or web address]: 2024[facility]02 Pat Name: Della Davis Department: Room: Gender: Female Community Specialist: : 1970 Requested By: Cain Cee Order Number: [id number] Americo MD: Antonio Fortune M.D. Measurements Intervals [place] Rate: 78 P: 29 RI: 176 QRS: 47 QRSD: 84 T: 62 QT: 408 QTc: 466 Interpretive Statements SINUS RHYTHM POSSIBLE RIGHT VENTRICULAR CONDUCTION DELAY [RSR (QR) IN V1/V2] Compared to ECG 05/01/2024 23:18:55 Atrial flutter no longer present ST (T wave) deviation no longer present Electronically Signed On 05-02-2024 22:07:41 CHARTER COORDINATOR by Antonio Fortune M.D. [email or web address]
[2024-05-02 01:36] LABS: Reflex Lactate Order REFLEX LACTIC ORDERD
[2024-05-02 01:45] LABS: Troponin 5 2HR 38.32 ng/L (0-10)
[2024-05-02 01:54] LABS: Troponin 5 2HR Delta 28.32 ABS# (0-10)
[2024-05-02 02:24] LABS: Lactic Acid level (Lactate) 2.6 mmol/L (0.5-2.2)
[2024-05-02] MEDS: ketorolac 30 mg/mL INJ IVP (02:43)
[2024-05-02] MEDS: ondansetron 2 mg/ML SDV 2 mL 4 MG IVP (02:43)
[2024-05-02] MEDS: enoxaparin 100 mg/mL Syringe SUBCUT ×2 (03:04→15:17)
[2024-05-02] MEDS: sodium chloride 0.9% 1,000 ML 250 ML IV ×2 (03:05→07:16)
[2024-05-02 03:56] LABS: Bilirubin Urine Negative (Negative); Blood Urine Negative (Negative); Glucose Urine UA Trace (Normal); Ketones Urine Trace (Negative); Leukocyte Esterase Urine Trace (Negative); Nitrate Urine Negative (Negative); Protein Urine 2+ (Negative); Specific Gravity, Urine 1.018 (1.005-1.030); Urine Appearance Cloudy (CLEAR); Urine Color Dark Yellow (Yellow)
[2024-05-02 04:01] LABS: Add Urine Microscopic? YES; Bacteria Urine None Seen /hpf; Hyaline Casts Urine 56.26 /lpf; RBC Urine 0-2 /hpf (0-2)
[2024-05-02 04:03] LABS: Amphetamines Screen Urine Positive (Negative); Barbiturates Screen Urine Negative (Negative); Benzodiazepines Screen Urine Negative (Negative); Cocaine Screen Urine Negative (Negative); Opiate Screen Urine Negative (Negative); PCP Screen Urine Negative (Negative); THC Screen Urine Negative (Negative)
[2024-05-02 04:36] LABS: Add Urine Culture? No
--- NOTE | 2024-05-02 05:23 | ECG_ITS ---
[facility] 2024-[facility]-02 Pat Name: Della Davis Department: Room: Gender: Female Blind Lacer: : 1970 Requested By: Cain Cee Order Number: [id number] Driscoll MD: Antonio Fortune M.D. Measurements Intervals [place] Rate: 79 P: 46 MD: 180 QRS: 47 QRSD: 88 T: 56 QT: 384 QTc: 443 Interpretive Statements SINUS RHYTHM Compared to ECG 05/02/2024 02:21:43 No significant changes Electronically Signed On 05-02-2024 22:07:36 MANAGER SOLUTION by Antonio Fortune M.D. [email or web address]
[2024-05-02 05:40] LABS: Basophils % 0.2 %; Eosinophils # 0.1 10^3/uL (0.0-0.8); Eosinophils % 0.3 %; Hematocrit 43.9 % (36-47); Lymphocytes # 0.8 10^3/uL (0.8-4.8); Lymphocytes % 3.4 %; Mean Corpuscular Hemoglobin 29.8 pg (27-33); Mean Corpuscular Volume 90.1 fl (85-98); Mean Platelet Volume 9.2 fL (7.4-10.4); Monocytes # 1.1 10^3/uL (0.2-0.9); Monocytes % 4.7 %; Neutrophils # 21.36 10^3/uL (1.8-7.7); Nucleated Red Blood Cells % 0 %; Platelet Count 302 10^3/cmm (157-399); Red Blood Count 4.87 10^6/uL (3.85-5.65); White Blood Count 23.47 10^3/uL (3.29-11.43)
[2024-05-02] MEDS: morphine 4 mg/mL SDV 1 mL IVP (05:44)
[2024-05-02 06:07] LABS: Anion Gap 14.6 (5-19); Blood Urea Nitrogen 14 mg/dL (6-20); Calcium 7.4 mg/dL (8.5-10.5); Carbon Dioxide 20 mmol/L (22-29); Chloride 108 mmol/L (98-107); Creatinine Clr Calc Pharmacy 81.3024; Glomerular Filtration Rate 52.4 mL/min (90-130); Glucose 131 mg/dL (65-115); Osmolality Calculated 290 mOsm/kg (285-295); Potassium 3.6 mmol/L (3.5-5.1); Sodium 139 mmol/L (136-145)
[2024-05-02 06:08] LABS: Lipase 24 U/L (13-60)
--- NOTE | 2024-05-02 08:03 | PC.PHAR ---
PATIENT STATES SHE TAKES ESTROGEN AND PROGESTERONE .I VERIFIED WITH [facility] AND SHE USES A CREAM WITH ESTROGEN 0.5MG, PROGESTERONE 75MG ADN DHEA AND APPLIES IT BID DAILY . SHE ALSO GET A DIET CAPSULE THEY COMPOUND CALLED WELLFIT 2 ,MADE UP OF BUPROPION 75MG, PHENTERMINE 17MG ,LDNA 4.5MG, AND CHROMIUM 400 MCG.PATIENT TAKES ONE CAPSULE IN THE AM .
--- NOTE | 2024-05-02 08:28 | PC.PHAR ---
pATIENT IS ALSO TAKING TIRZEPATIDE . I WILL CALL AT 9 WHEN THE CLINIC SHE GETS IT FROM [facility] AT 9 FOR STRENGTH . SHE TAKES IT FOR WEIGHT LOSS .
--- NOTE | 2024-05-02 08:43 | P.HP_ITS ---
Providers/Chief Complaint 2 Admitting Physician: Carl Olivares MD Primary Care Provider: Tiffany Kimbrough NP Chief Complaint: Going In and Out History of Present Illness Della Davis is a 53 year old female who presented to the emergency department after syncopal episode. She reports after she ate clam chowder, and had a shot of alcohol she started feeling ill. She reports some itching, palmar erythema, feeling as if she needed to go to the bathroom, and nausea. Apparently she got to the bathroom, vomited. She is not for sure if she ever had a bowel movement. Family reports she passed out, and then was in and out of it for a while. While coming into the ER, or at the ER she reports she had a diarrheal stool. She reports she now feels much better. In the ER she was found to be tachycardic, hypotensive, initially concern of a flutter but when I reviewed the EKG this appears to be sinus tachycardia. She was hypothermic. She received fluids. Lactate and white blood cell count were elevated. No evidence of infection was found on urinalysis, chest x-ray. She denies any significant abdominal pain, nausea, wheezing, swelling currently. She reports no prior history of seafood allergy. This was homemade. She denies any chest pain. Review of Systems 2 General: Reports: 10 or more systems reviewed and unremarkable except in HPI and below Card: Reports: palpitations; Denies: chest pain Resp: Denies: dyspnea GI: Denies: abdominal pain Medications/Allergies Home Medications Medication Instructions Recorded Confirmed Last Taken Type omeprazole 20 mg capsule,delayed 20 mg PO DAILY PRN Heartburn 09/30/20 05/02/24 Unknown History release sumatriptan succinate 100 mg tablet See Rx Instructions PO .COMPLEX 07/04/21 05/02/24 Unknown History aspirin 325 mg tablet 325 mg PO DAILY 04/07/23 05/02/24 05/01/24 History glucosamine sulf dipot 2 cap PO QAM 04/07/23 05/02/24 05/01/24 History chlr,msm,chond 550 mg-C 30 mg-ina 1 mg capsule (Glucosamine Chondroitin) hydrochlorothiazide 12.5 mg tablet 12.5 mg PO DAILY #30 tabs 04/07/23 05/02/24 05/01/24 Rx losartan 100 mg tablet 100 mg PO QAM 04/07/23 05/02/24 05/01/24 History propranolol 10 mg tablet 10 mg PO TID 04/07/23 05/02/24 05/01/24 History alprazolam 0.25 mg tablet 0.25 mg PO BID PRN anxiety 30 days 11/13/23 05/02/24 Unknown Rx #45 tabs Wellfit 2 1 cap PO QAM 05/02/24 05/02/24 05/01/24 History diindolylmethane 150 mg-broccoli 1 cap PO DAILY 05/02/24 05/02/24 05/01/24 History seed extract 30 mg capsule ibuprofen 200 mg tablet (Advil) 600 mg PO Q6H PRN Pain 05/02/24 05/02/24 05/01/24 History magnesium L-threonate 48 mg 48 mg PO DAILY 05/02/24 05/02/24 05/01/24 History magnesium (667 mg) capsule Allergies Allergy/AdvReac Type Severity Reaction Status Date / Time hydrocodone AdvReac Severe ADR-Vomitin Verified 04/07/23 16:07 g PFSH Acute 2 PFSH: Medical History Psychiatric care Problems related to lack of adequate sleep PTSD (post-traumatic stress disorder) HTN (hypertension) Allergic rhinitis Herpes simplex type 1 infection Breast mass Surgical History History of hysterectomy H/O abdominoplasty H/O breast augmentation Family History Mother Hypertension Father Hypertension Grandmother Diabetes Heart disease Social History Smoking and tobacco/nicotine status: never used tobacco/nicotine Second hand smoke exposure: No Alcohol intake: current Alcohol intake frequency: few times a week Substance/Drug Use: never Lives independently: Yes Household members: spouse Marital status: Current occupational status: unemployed Do you think of yourself as: Straight/Heterosexual Current gender identity: Female Vitals/I&O/Wt Last Vital Signs Temp 98.1 F 05/02/24 06:00 Pulse 85 05/02/24 08:06 Resp 18 05/02/24 06:00 BP 138/88 05/02/24 08:06 Pulse Ox 93 05/02/24 08:06 O2 Del Method Room Air 05/02/24 06:00 05/01/24 05/02/24 05/02/24 22:59 06:59 14:59 Intake Total 3174.0 / 3174.0 1000 / 1000 Balance 3174.0 / 3174.0 1000 / 1000 Weight last 48 hrs Weight 106.594 kg Physical Exam 2 Narrative: General Exam is white female, no distress, currently with stable vital signs HEENT: Atraumatic normocephalic. Oropharynx clear Neck is supple no lymphadenopathy thyromegaly Cardiovascular regular rate and rhythm without murmur Lungs clear no wheezing or crackles Abdomen is soft nontender positive bowel sounds. No obvious organomegaly exams deferred Extremities no cyanosis clubbing edema, cap refill brisk Skin no rash Neuro no obvious focal deficits Data 05/02/24 05:30 05/02/24 05:30 Other Labs: LFTs are normal. Calcium 7.4, albumin 4.2 Lipase normal Procalcitonin normal Troponin 10 then 38 then 71 Urinalysis 11-20 whites but then 11-20 squamous. 2+ protein Chest x-ray no infiltrate, I reviewed as well Blood cultures drawn EKG initially demonstrates sinus tachycardia per my review with a heart rate of 130, normal axis, few premature atrial contractions. Repeat EKG sinus rhythm, normal axis, no acute changes Urine drug screen positive for amphetamines Alcohol less than 10 Micro: Microbiology 05/02/24 01:14 Blood Culture - Preliminary Blood SPECIMEN COLLECTED 05/01/24 23:00 Blood Culture - Preliminary Blood SPECIMEN COLLECTED A&P Assessment and plan (1) Hypotension: Patient initially hypotensive This could be secondary to allergy, or toxin mediated after clam chowder. This was also associated with nausea, ultimately diarrhea, syncope, tachycardia. Consider epinephrine pen on discharge, avoid all shellfish, shallow-based seafood for the interim Could consider outpatient allergy referral Continue to monitor blood pressure here (2) Hypothermia: Resolved, see above (3) Tachycardia: Resolved, see above Initial EKG appears to be sinus tachycardia, not atrial flutter (4) Non-ST elevation DE (NSTEMI): Significant troponin elevation This may be a type II elevation Check echocardiogram Cardiology consult Aspirin 325 mg daily Check lipid profile Check TSH Observation Hold off on beta-vikas considering urine drug screen showed amphetamines (5) Syncope: Likely secondary hypotension Continue to follow closely Fall precautions Plan Urine drug screen positive for amphetamines. She denies. History of migraine headaches Full code Lovenox for DVT prophylaxis Attestations 2 Medical Necessity Statement*: Will need less than 2 midnight stay for evaluation and treatment of elevated troponin, hypotension Diagnoses Hypotension I95.9 Hypothermia T68.XXXA Tachycardia R00.0 Non-ST elevation DE (NSTEMI) I21.4 Syncope R55 Time Spent (min) 57
--- NOTE | 2024-05-02 08:49 | USCV_ITS ---
Della Davis Age: 53 Gender: F : 1970 Exam Date: 05/02/2024 09:25 Ordering Phys: Carl Olivares MD Technologist: [place] [facility] [place]: cp sob BP: 124 / 84 HR: 89 Rhythm: Sinus Technical Quality: Adequate MEASUREMENTS (Male / Female) Normal Values 2D ECHO LV Diastolic Diameter PLAX 3.7 cm 4.2 - 5.9 / 3.9 - 5.3 cm IVS Diastolic Thickness 1.1 cm 0.6 - 1.0 / 0.6 - 0.9 cm IVS Systolic Thickness 1.6 cm LVPW Diastolic Thickness 1.4 cm 0.6 - 1.0 / 0.6 - 0.9 cm LVPW Systolic Thickness 1.3 cm LVOT Diameter 2.1 cm LV Ejection Fraction 2D Teich 64.8 % LV Ejection Fraction MOD 4C 61.9 % LV Ejection Fraction MOD 2C 62.0 % LV Ejection Fraction 2C AL 60.3 % LA Diameter 2.9 cm RA Systolic Volume 4C AL 39.3 ml RA Systolic Volume 4C MOD 36.3 ml Aorta at Sinotubular Diameter 2.6 cm IVC Diameter 2.0 cm DOPPLER AV Peak Velocity 114.0 cm/s LVOT Peak Velocity 94.0 cm/s AV Area Cont Eq vti 3.3 cm squared AV Area Cont Eq pk 2.7 cm squared MV Peak Velocity 85.0 cm/s MV Area PHT 5.8 cm squared Mitral E to A Ratio 0.9 TR Peak Velocity 162.0 cm/s TR Peak Gradient 10.5 mmHg TV Peak E Velocity 79.0 cm/s PV Peak Velocity 120.0 cm/s FINDINGS Left Ventricle Normal left ventricular size and systolic function, EF 62%. No regional wall motion abnormalities. Right Ventricle The right ventricle is normal in size and function. Right Atrium The right atrium is normal in size. Left Atrium The left atrium is normal in size. Mitral Valve No gross abnormalities noted Aortic Valve No gross abnormalities noted Tricuspid Valve Trace tricuspid valve regurgitation. Pulmonic Valve Pulmonic valve not well visualized. Pericardium Normal pericardium without effusion. Aorta Normal ascending aorta dimension. IVC Inferior vena cava not visualized. CONCLUSIONS Normal left ventricular size and systolic function, EF 62%. No regional wall motion abnormalities. Normal cardiac chamber sizes No significant valvular lesions. There is no pericardial effusion. Technically somewhat limited study because of poor apical windows No similar previous studies are available for comparison Dr Evita Cuevas MD FAC (Electronically Signed) Final Date: 02 May 2024 11:45 S
[2024-05-02 09:20] LABS: Thyroid Stimulating Hormone 1.43 uIU/mL (0.27-4.20)
[2024-05-02 09:34] LABS: Estmated Average Glucose 103; Hemoglobin A1C 5.2 % (4.0-6.0)
[2024-05-02] MEDS: aspirin 325 mg EC Tablet PO (09:59)
[2024-05-02] MEDS: sodium chloride 0.9% 1,000 ML 75 ML IV (10:00)
--- NOTE | 2024-05-02 10:08 | P.CONIM_ITS ---
Providers/Reason For Consult 2 Consulting Physician/Specialty*: Dr OVIDIO Cuevas/Cardiology Reason for Consult*: Pt with chest pain Requesting Physician: Dr Olivares Attending Physician: Carl Olivares MD Primary Care Provider: Tiffany Kimbrough NP History of Present Illness History of Present Illness Della Davis is a 53 year old female is admitted to the hospital through the emergency room, when she presented with the complaints of an acute onset of nausea vomiting sweating, shortness of breath generalized itching and syncopal episode. She was found to have elevated troponin T. Cardiology consult is requested for further cardiac evaluation recommendations. This patient apparently has been in her baseline state of health up until yesterday evening when she had the above-mentioned symptoms. She had a bowl of clam chowder yesterday afternoon at home. Few minutes after this, she started throwing up, developing itching of both upper extremities associated with shortness of breath and sweating. She went to the bathroom where she passed out. Her and her daughter carried her to the chair. She might have asked her for couple of minutes. She did not have any chest pain or chest tightness. No other associated symptoms. No fever or chills. No cough. Since coming to the hospital, she had a 405 episodes of diarrhea. As of now, at the time my examination, patient is back to her baseline. She has no nausea or vomiting. No palpitations. She might have had some fluttering in the chest lasting for few seconds this morning. No other specific complaints. She has a history of hypertension for the last 30 years or so. No history of diabetes or dyslipidemia. No history for any coronary disease or myocardial infarction. No history for any cardiac arrhythmia. She drinks socially. No substance abuse or any smoking abuse. She is known to have PTSD . She also has history of anxiety disorder. She is being followed by the behavioral health clinic. Her mother had a myocardial infarction in her early 60s. Her father had congestive heart failure in his 50s and was told to have cardiomyopathy. No other relevant family history. Her initial troponin T was 10 with the 2-hour delta of 28 and a 6-hour delta of 60. Review of Systems 2 Narrative: CONSTITUTIONAL: No fever or chills. EYES: No blurring of vision or other visual disturbances lately. ENT: No hoarseness of voice, auditory disturbances or sore throat. CARDIOVASCULAR: As mentioned above. RESPIRATORY: No significant cough. GASTROINTESTINAL: As mentioned above GENITOURINARY: No dysuria or hematuria. INTEGUMENTARY: No skin rashes or history of skin cancer. NEURO: No transient ischemic attacks or amaurosis. PSYCHIATRIC: No history of psychosis or major depression. HEMATOLOGIC: No bleeding disorders or significant anemia. ENDOCRINE: No history of polyuria or polydipsia. MUSCULOSKELETAL: No recent joint pain or swelling. ALLERGY/IMMUNOLOGY: As mentioned above. Medications/Allergies Home Medications Medication Instructions Recorded Confirmed Last Taken Type omeprazole 20 mg capsule,delayed 20 mg PO DAILY PRN Heartburn 09/30/20 05/02/24 Unknown History release sumatriptan succinate 100 mg tablet See Rx Instructions PO .COMPLEX 07/04/21 05/02/24 Unknown History aspirin 325 mg tablet 325 mg PO DAILY 04/07/23 05/02/24 05/01/24 History glucosamine sulf dipot 2 cap PO QAM 04/07/23 05/02/24 05/01/24 History chlr,msm,chond 550 mg-C 30 mg-ina 1 mg capsule (Glucosamine Chondroitin) hydrochlorothiazide 12.5 mg tablet 12.5 mg PO DAILY #30 tabs 04/07/23 05/02/24 05/01/24 Rx losartan 100 mg tablet 100 mg PO QAM 04/07/23 05/02/24 05/01/24 History propranolol 10 mg tablet 10 mg PO TID 04/07/23 05/02/24 05/01/24 History alprazolam 0.25 mg tablet 0.25 mg PO BID PRN anxiety 30 days 11/13/23 05/02/24 Unknown Rx #45 tabs Wellfit 2 1 cap PO QAM 05/02/24 05/02/24 05/01/24 History diindolylmethane 150 mg-broccoli 1 cap PO DAILY 05/02/24 05/02/24 05/01/24 History seed extract 30 mg capsule ibuprofen 200 mg tablet (Advil) 600 mg PO Q6H PRN Pain 05/02/24 05/02/24 05/01/24 History magnesium L-threonate 48 mg 48 mg PO DAILY 05/02/24 05/02/24 05/01/24 History magnesium (667 mg) capsule Allergies Allergy/AdvReac Type Severity Reaction Status Date / Time hydrocodone AdvReac Severe ADR-Vomitin Verified 04/07/23 16:07 g Current Medications Generic Name Dose Route Start Last Admin Trade Name Abena PRN Reason Stop Dose Admin Aspirin 325 mg 05/02/24 09:00 05/02/24 09:59 Aspirin 325 Mg Ec Tablet PO 325 mg DAILY JUANPABLO Administration Sodium Chloride 1,000 mls @ 75 mls/hr 05/02/24 09:15 05/02/24 10:00 Sodium Chloride 0.9% IV 75 mls/hr .[id number] JUANPABLO Administration PFSH Acute 2 PFSH: Medical History Psychiatric care Problems related to lack of adequate sleep PTSD (post-traumatic stress disorder) HTN (hypertension) Allergic rhinitis Herpes simplex type 1 infection Breast mass Surgical History History of hysterectomy H/O abdominoplasty H/O breast augmentation Family History Mother Hypertension Father Hypertension Grandmother Diabetes Heart disease Social History Smoking and tobacco/nicotine status: never used tobacco/nicotine Second hand smoke exposure: No Alcohol intake: current Alcohol intake frequency: few times a week Substance/Drug Use: never Lives independently: Yes Household members: spouse Marital status: Current occupational status: unemployed Do you think of yourself as: Straight/Heterosexual Current gender identity: Female Vitals/I&O/Wt Last Vital Signs Temp 98.1 F 05/02/24 06:00 Pulse 81 05/02/24 09:54 Resp 18 05/02/24 06:00 BP 138/88 05/02/24 08:06 Pulse Ox 95 05/02/24 09:54 O2 Del Method Room Air 05/02/24 09:54 05/01/24 05/02/24 05/02/24 22:59 06:59 14:59 Intake Total 3174.0 / 3174.0 1000 / 1000 Balance 3174.0 / 3174.0 1000 / 1000 Weight last 48 hrs Weight 235 lb Physical Exam 2 Narrative: GENERAL: The patient is alert and oriented times three. Not in any acute distress. HEENT: No significant pallor, icterus or lymphadenopathy.Oral cavity: There are no mucous membrane lesions. NECK: Trachea appears to be central. No masses noted. No JVD or thyromegaly appreciated. RESPIRATORY: Chest is symmetrical. No intercostals muscle retraction or any accessory muscle activation. There is no chest wall tenderness. Breath sounds are heard bilaterally. No rales or rhonchi heard. No evidence of any consolidation. BREASTS: Deferred. HEART: The heart sounds are normal. No S3 or S4. No significant murmurs. No pericardial rub ABDOMEN: No vessel pulsations or distention. No tenderness. No organomegaly appreciated. Bowel sounds are normally heard. : Deferred. RECTAL: Deferred. LYMPHATIC: No lymphadenopathy noted in the neck. EXTREMITIES: No edema or cyanosis. No clubbing. MUSCULOSKELETAL: No acute joint deformities or swelling SKIN: There are no significant rashes or ecchymosis NEUROPSYCHIATRIC: The patient is alert and oriented x3. Appears to be in a good mood. No tremors or rigidity noted. Data 05/02/24 05:30 05/02/24 05:30 Other Labs: Laboratory Last Values WBC 23.47 10^3/uL (3.29-11.43) H 05/02/24 05:30 RBC 4.87 10^6/uL (3.85-5.65) 05/02/24 05:30 Hgb 14.50 g/dL (11.27-16.99) 05/02/24 05:30 Hct 43.9 % (36-47) 05/02/24 05:30 MCV 90.1 fl (85-98) 05/02/24 05:30 MCH 29.8 pg (27-33) 05/02/24 05:30 MCHC 33.0 g/dL (30-55) 05/02/24 05:30 RDW 13.0 % (12.1-15.1) 05/02/24 05:30 Plt Count 302 10^3/cmm (157-399) D 05/02/24 05:30 MPV 9.2 fL (7.4-10.4) 05/02/24 05:30 Neut % (Auto) 91.0 % 05/02/24 05:30 Lymph % (Auto) 3.4 % 05/02/24 05:30 Kaufman % (Auto) 4.7 % 05/02/24 05:30 Eos % (Auto) 0.3 % 05/02/24 05:30 Baso % (Auto) 0.2 % 05/02/24 05:30 Neut # (Auto) 21.36 10^3/uL (1.8-7.7) H 05/02/24 05:30 Lymph # (Auto) 0.8 10^3/uL (0.8-4.8) 05/02/24 05:30 Kaufman # (Auto) 1.1 10^3/uL (0.2-0.9) H 05/02/24 05:30 Eos # (Auto) 0.1 10^3/uL (0.0-0.8) 05/02/24 05:30 Baso # (Auto) 0.0 10^3/uL (0.0-0.1) 05/02/24 05:30 Nucleated RBC % (auto) 0 % 05/02/24 05:30 Nucleated RBCs # 0.0 /100WBC 05/02/24 05:30 Sodium 139 mmol/L (136-145) 05/02/24 05:30 Potassium 3.6 mmol/L (3.5-5.1) 05/02/24 05:30 Chloride 108 mmol/L (98-107) H 05/02/24 05:30 Carbon Dioxide 20 mmol/L (22-29) L 05/02/24 05:30 Anion Gap 14.6 (5-19) 05/02/24 05:30 BUN 14 mg/dL (6-20) 05/02/24 05:30 Creatinine 1.1 mg/dL (0.5-0.9) H 05/02/24 05:30 GFR Calculation 52.4 mL/min (90-130) L 05/02/24 05:30 Glucose 131 mg/dL (65-115) H 05/02/24 05:30 POC Glucose 185 mg/dL (70-110) H 05/01/24 23:21 Estimat Average Glucose 103 05/02/24 05:30 Hemoglobin A1c 5.2 % (4.0-6.0) 05/02/24 05:30 Calculated Osmolality 290 mOsm/kg (285-295) 05/02/24 05:30 Lactic Acid 4.4 mmol/L (0.5-2.2) H* 05/01/24 23:00 Lactic Acid (Sepsis) 2.6 mmol/L (0.5-2.2) H 05/02/24 01:14 Calcium 7.4 mg/dL (8.5-10.5) L 05/02/24 05:30 Magnesium 2.2 mg/dL (1.7-2.3) 05/01/24 23:30 Total Bilirubin 0.3 mg/dL (0.15-1.2) 05/01/24 23:30 AST 26 U/L (0-32) 05/01/24 23:30 ALT 21 U/L (0-33) 05/01/24 23:30 Alkaline Phosphatase 52 U/L (35-105) 05/01/24 23:30 Troponin T Baseline 10 ng/L (0-10) 05/01/24 23:30 Troponin T 120 Minute 38.32 ng/L (0-10) H 05/02/24 01:14 Delta Troponin T 28.32 ABS# (0-10) H* 05/02/24 01:14 Troponin T Hi Sens 6Hr 70.80 ng/L (0-10) H 05/02/24 05:30 Troponin T Hi Sens 6Hr Delta 60.80 ng/L (0-12) H* 05/02/24 05:30 Total Protein 6.7 g/dL (6.6-8.7) 05/01/24 23:30 Albumin 4.2 g/dL (3.5-5.2) 05/01/24 23:30 Globulin 2.5 g/dL (1.3-4.6) 05/01/24 23:30 Lipase 24 U/L (13-60) 05/02/24 05:30 Procalcitonin 0.04 ng/mL (0-0.5) 05/01/24 23:00 TSH 1.43 uIU/mL (0.27-4.20) 05/02/24 05:30 Urine Color Dark yellow (Yellow) A 05/02/24 03:42 Urine Appearance Cloudy (CLEAR) A 05/02/24 03:42 Urine pH 6.0 (5-7) 05/02/24 03:42 Ur Specific [place] 1.018 (1.005-1.030) 05/02/24 03:42 Urine Protein 2+ (Negative) A 05/02/24 03:42 Urine Glucose (UA) Trace (Normal) H 05/02/24 03:42 Urine Ketones Trace (Negative) 05/02/24 03:42 Urine Blood Negative (Negative) 05/02/24 03:42 Urine Nitrate Negative (Negative) 05/02/24 03:42 Urine Bilirubin Negative (Negative) 05/02/24 03:42 Urine Urobilinogen 1.0 mg/dL (Negative) 05/02/24 03:42 Ur Leukocyte Esterase Trace (Negative) A 05/02/24 03:42 Urine RBC 0-2 /hpf (0-2) 05/02/24 03:42 Urine WBC 11-20 /hpf (0-5) H 05/02/24 03:42 Ur Squamous Epith Cells 11-20 /hpf (0-5) 05/02/24 03:42 Amorphous Sediment Not Reportable 05/02/24 03:42 Urine Bacteria None seen /hpf (NONE) 05/02/24 03:42 Hyaline Casts 56.26 /lpf 05/02/24 03:42 Urine Opiates Screen Negative ng/mL (Negative) 05/02/24 03:42 Ur Barbiturates Screen Negative ng/mL (Negative) 05/02/24 03:42 Ur Phencyclidine Scrn Negative ng/mL (Negative) 05/02/24 03:42 Ur Amphetamines Screen Positive ng/mL (Negative) H 05/02/24 03:42 U Benzodiazepines Scrn Negative ng/mL (Negative) 05/02/24 03:42 Urine Cocaine Screen Negative ng/mL (Negative) 05/02/24 03:42 U Marijuana (THC) Screen Negative ng/mL (Negative) 05/02/24 03:42 Ethyl Alcohol < 10 mg/dL (0-10) 05/01/24 23:30 Micro: Microbiology 05/02/24 01:14 Blood Culture - Preliminary Blood SPECIMEN COLLECTED 05/01/24 23:00 Blood Culture - Preliminary Blood SPECIMEN COLLECTED Other data: The EKG from today revealed normal sinus rhythm with normal ST Ts. Poor R wave progression. At the time of the admission, the EKG showed a sinus tachycardia. A&P Assessment and plan (1) Elevated troponin: Possibility of a type II MS is a consideration. It is possible that the toxin from the food might have caused some enzyme release. She denies any drug abuse. However the urine tox screen showed amphetamine. In view of the strong family history of premature heart disease it may be appropriate to keep her on aspirin, low-dose beta-vikas and a statin drug. (2) Hypertension: May continue on the current antihypertensive medications. Qualifiers: Hypertension type: primary hypertension Qualified Code(s): I10 - Essential (primary) hypertension (3) PTSD (post-traumatic stress disorder): May continue on the current management. (4) Obstructive sleep apnea: This may need to be further evaluated with a sleep study to decide on the management. Plan Patient had an echocardiogram this morning. I will be reviewing echocardiogram. The EKG is unremarkable. After reviewing the echocardiogram, further recommendations will be made. In the meanwhile, patient may be kept on the subcu Lovenox, beta-vikas , statin and aspirin. I do a lipid profile on the blood in the lab Thank you for the opportunity to evaluate this patient and make these recommendations Consult Attestations 2 Medical Necessity Statement: Patient requires continued hospital stay for close monitoring and further management Coding Level of Care Code 23146 Diagnoses Elevated troponin R79.89 Primary hypertension I10 Hypertension type: primary hypertension PTSD (post-traumatic stress disorder) F43.10 Obstructive sleep apnea G47.33
--- NOTE | 2024-05-02 10:10 | PC.NURSE ---
No patient belongings. Patient states and mom took it all home from ER.
[2024-05-02] MEDS: hyDRALAzine 20 mg/mL INJ 1 mL 10 MG IVP (15:17)
[2024-05-02] MEDS: alum-mag-hydroxide-sime 30 mL UDC 15 ML PO (15:17)
[2024-05-02] MEDS: pantoprazole DR 40 mg Tablet PO (17:24)
[2024-05-02] MEDS: metoprolol tartrate 25 mg Tablet 12.5 MG PO (20:23)
[2024-05-02] MEDS: atorvastatin 40 mg Tablet PO (20:23)
[2024-05-03] VITALS (22 sets, daily range): BP systolic 142–170; BP diastolic 78–107; PULSE 72–103; RESP 11–24; TEMP 36.1–37.3; O2SAT 92–98; BMI 33.0
[2024-05-03] MEDS: acetaminophen 325 mg Tablet 650 MG PO (01:04)
[2024-05-03] MEDS: enoxaparin 100 mg/mL Syringe SUBCUT (03:44)
[2024-05-03 04:02] LABS: Basophils % 0.1 %; Eosinophils # 0.2 10^3/uL (0.0-0.8); Eosinophils % 1.3 %; Lymphocytes % 12.8 %; Mean Corpuscular Hemoglobin 29.8 pg (27-33); Mean Corpuscular Volume 90.2 fl (85-98); Mean Platelet Volume 9.5 fL (7.4-10.4); Monocytes # 0.9 10^3/uL (0.2-0.9); Neutrophils # 12.37 10^3/uL (1.8-7.7); Neutrophils % 79.4 %; Nucleated Red Blood Cells % 0 %; Platelet Count 255 10^3/cmm (157-399); Red Cell Distribution Width 13.2 % (12.1-15.1); White Blood Count 15.61 10^3/uL (3.29-11.43)
[2024-05-03 04:29] LABS: Chol HDL Ratio 5.52 mg/dL (0.0-4.40); Cholesterol 149 mg/dL (0-200); HDL Cholesterol 27 mg/dL (60-100); LDL Cholesterol Calculated 95 mg/dL (50-129); LDL HDL Ratio 3.52 RATIO (0.00-3.22); Triglycerides 137 mg/dL (0-150)
[2024-05-03 04:30] LABS: Alanine Aminotransferase 13 U/L (0-33); Albumin Level 3.2 g/dL (3.5-5.2); Alkaline Phosphatase 33 U/L (35-105); Anion Gap 13.5 (5-19); Aspartate Amino Transferase 17 U/L (0-32); Blood Urea Nitrogen 6 mg/dL (6-20); Calcium 7.5 mg/dL (8.5-10.5); Carbon Dioxide 19 mmol/L (22-29); Chloride 107 mmol/L (98-107); Creatinine Clr Calc Pharmacy 179.9629; Globulin 2.3 g/dL (1.3-4.6); Glomerular Filtration Rate 130.1 mL/min (90-130); Glucose 101 mg/dL (65-115); Magnesium 1.8 mg/dL (1.7-2.3); Osmolality Calculated 280 mOsm/kg (285-295); Potassium 3.5 mmol/L (3.5-5.1); Sodium 136 mmol/L (136-145); Total Bilirubin 0.3 mg/dL (0.15-1.2); Total Protein 5.5 g/dL (6.6-8.7)
--- NOTE | 2024-05-03 08:25 | P.PN_ITS ---
Subjective 2 Subjective: The patient is feeling much better. No chest pain or palpitations. No arrhythmias on the monitor. Vital signs are stable. Medications: Medication Review Details: Current Medications Acetaminophen (Acetaminophen 325 Mg Tablet) 650 mg PO Q6H PRN PRN Reason: Mild/Mod Pain Or Temp >/= 101 Last Admin: 05/03/24 01:04 Dose: 650 mg Al Hydrox/Mg Hydrox/Simethicone (Cpnz-Upq-Ruxksajwg-Campbell 30 Ml Udc) 15 ml PO PRN PRN PRN Reason: INDIGESTION Last Admin: 05/02/24 15:17 Dose: 15 ml Aspirin (Aspirin 325 Mg Ec Tablet) 325 mg PO DAILY [facility] Last Admin: 05/02/24 09:59 Dose: 325 mg Atorvastatin Calcium (Atorvastatin 40 Mg Tablet) 40 mg PO BEDTIME [facility] Last Admin: 05/02/24 20:23 Dose: 40 mg Enoxaparin Sodium (Enoxaparin 100 Mg/Ml Syringe) 100 mg SUBCUT Q12H [facility] Last Admin: 05/03/24 03:44 Dose: 100 mg Hydralazine HCl (Hydralazine 20 Mg/Ml Inj 1 Ml) 10 mg IVP Q4H PRN PRN Reason: HYPERTENSION Last Admin: 05/02/24 15:17 Dose: 10 mg Sodium Chloride (Sodium Chloride 0.9%) 1,000 mls @ 75 mls/hr IV .[id number] [facility] Last Titration: 05/03/24 02:23 Dose: 75 mls/hr Lanolin (Lanolin Oint 7 Gm) 1 applic TOPICAL PRN PRN PRN Reason: DRYNESS Metoprolol Tartrate (Metoprolol Tartrate 25 Mg Tablet) 12.5 mg PO BID@0900,2100 [facility] Last Admin: 05/02/24 20:23 Dose: 12.5 mg Ondansetron HCl (Ondansetron 2 Mg/Ml Sdv 2 Ml) 4 mg IVP Q6H PRN PRN Reason: vomiting, or N/V if npo Pantoprazole Sodium (Pantoprazole Dr 40 Mg Tablet) 40 mg PO DAILY PRN PRN Reason: Heartburn Last Admin: 05/02/24 17:24 Dose: 40 mg Vitals/I&O/Wt Last Vital Signs Temp 97.7 F 05/03/24 04:00 Pulse 86 05/03/24 06:00 Resp 17 12/14/24 06:00 BP 150/78 05/03/24 06:00 Pulse Ox 96 05/03/24 06:00 O2 Del Method Room Air 05/03/24 06:00 05/02/24 05/03/24 05/03/24 22:59 06:59 14:59 Intake Total 500 / 1500 Balance 500 / 1500 Weight last 48 hrs Weight 236 lb 15.951 oz Weight 237 lb 14.06 oz Weight 235 lb Physical Exam 2 Narrative: GENERAL: The patient is alert and oriented times three. Not in any acute distress. HEENT: No significant pallor, icterus or lymphadenopathy.Oral cavity: There are no mucous membrane lesions. NECK: Trachea appears to be central. No masses noted. No JVD or thyromegaly appreciated. RESPIRATORY: Chest is symmetrical. No intercostals muscle retraction or any accessory muscle activation. There is no chest wall tenderness. Breath sounds are heard bilaterally. No rales or rhonchi heard. No evidence of any consolidation. BREASTS: Deferred. HEART: The heart sounds are normal. No S3 or S4. No significant murmurs. No pericardial rub ABDOMEN: No vessel pulsations or distention. No tenderness. No organomegaly appreciated. Bowel sounds are normally heard. : Deferred. RECTAL: Deferred. LYMPHATIC: No lymphadenopathy noted in the neck. EXTREMITIES: No edema or cyanosis. No clubbing. MUSCULOSKELETAL: No acute joint deformities or swelling SKIN: There are no significant rashes or ecchymosis NEUROPSYCHIATRIC: The patient is alert and oriented x3. Appears to be in a good mood. No tremors or rigidity noted. Data 05/03/24 03:31 05/03/24 03:31 Other Labs: Laboratory Last Values WBC 15.61 10^3/uL (3.29-11.43) H 05/03/24 03:31 RBC 4.10 10^6/uL (3.85-5.65) 05/03/24 03:31 Hgb 12.20 g/dL (11.27-16.99) 05/03/24 03:31 Hct 37.0 % (36-47) 05/03/24 03:31 MCV 90.2 fl (85-98) 05/03/24 03:31 MCH 29.8 pg (27-33) 05/03/24 03:31 MCHC 33.0 g/dL (30-55) 05/03/24 03:31 RDW 13.2 % (12.1-15.1) 05/03/24 03:31 Plt Count 255 10^3/cmm (157-399) 05/03/24 03:31 MPV 9.5 fL (7.4-10.4) 05/03/24 03:31 Neut % (Auto) 79.4 % 05/03/24 03:31 Lymph % (Auto) 12.8 % 05/03/24 03:31 [place]cl[place] % (Auto) 6.0 % 05/03/24 03:31 Eos % (Auto) 1.3 % 05/03/24 03:31 Baso % (Auto) 0.1 % 05/03/24 03:31 Neut # (Auto) 12.37 10^3/uL (1.8-7.7) H 05/03/24 03:31 Lymph # (Auto) 2.0 10^3/uL (0.8-4.8) 05/03/24 03:31 [place]cl[place] # (Auto) 0.9 10^3/uL (0.2-0.9) 05/03/24 03:31 Eos # (Auto) 0.2 10^3/uL (0.0-0.8) 05/03/24 03:31 Baso # (Auto) 0.0 10^3/uL (0.0-0.1) 05/03/24 03:31 Nucleated RBC % (auto) 0 % 05/03/24 03:31 Nucleated RBCs # 0.0 /100WBC 05/03/24 03:31 Sodium 136 mmol/L (136-145) 05/03/24 03:31 Potassium 3.5 mmol/L (3.5-5.1) 05/03/24 03:31 Chloride 107 mmol/L (98-107) 05/03/24 03:31 Carbon Dioxide 19 mmol/L (22-29) L 05/03/24 03:31 Anion Gap 13.5 (5-19) 05/03/24 03:31 BUN 6 mg/dL (6-20) 05/03/24 03:31 Creatinine 0.5 mg/dL (0.5-0.9) 05/03/24 03:31 GFR Calculation 130.1 mL/min (90-130) H 05/03/24 03:31 Glucose 101 mg/dL (65-115) 05/03/24 03:31 POC Glucose 185 mg/dL (70-110) H 05/01/24 23:21 Estimat Average Glucose 103 05/02/24 05:30 Hemoglobin A1c 5.2 % (4.0-6.0) 05/02/24 05:30 Calculated Osmolality 280 mOsm/kg (285-295) L 05/03/24 03:31 Lactic Acid 4.4 mmol/L (0.5-2.2) H* 05/01/24 23:00 Lactic Acid (Sepsis) 2.6 mmol/L (0.5-2.2) H 05/02/24 01:14 Calcium 7.5 mg/dL (8.5-10.5) L 05/03/24 03:31 Magnesium 1.8 mg/dL (1.7-2.3) 05/03/24 03:31 Total Bilirubin 0.3 mg/dL (0.15-1.2) 05/03/24 03:31 AST 17 U/L (0-32) 05/03/24 03:31 ALT 13 U/L (0-33) 05/03/24 03:31 Alkaline Phosphatase 33 U/L (35-105) L 05/03/24 03:31 Troponin T Baseline 10 ng/L (0-10) 05/01/24 23:30 Troponin T 120 Minute 38.32 ng/L (0-10) H 05/02/24 01:14 Delta Troponin T 28.32 ABS# (0-10) H* 05/02/24 01:14 Troponin T Hi Sens 6Hr 70.80 ng/L (0-10) H 05/02/24 05:30 Troponin T Hi Sens 6Hr Delta 60.80 ng/L (0-12) H* 05/02/24 05:30 Total Protein 5.5 g/dL (6.6-8.7) L 05/03/24 03:31 Albumin 3.2 g/dL (3.5-5.2) L 05/03/24 03:31 Globulin 2.3 g/dL (1.3-4.6) 05/03/24 03:31 Triglycerides 137 mg/dL (0-150) 05/03/24 03:31 Cholesterol 149 mg/dL (0-200) 05/03/24 03:31 LDL Cholesterol, Calc 95 mg/dL (50-129) 05/03/24 03:31 HDL Cholesterol 27 mg/dL (60-100) L 05/03/24 03:31 LDL/HDL Ratio 3.52 RATIO (0.00-3.22) H 05/03/24 03:31 Cholesterol/HDL Ratio 5.52 mg/dL (0.0-4.40) H 05/03/24 03:31 Lipase 24 U/L (13-60) 05/02/24 05:30 Procalcitonin 0.04 ng/mL (0-0.5) 05/01/24 23:00 TSH 1.43 uIU/mL (0.27-4.20) 05/02/24 05:30 Urine Color Dark yellow (Yellow) A 05/02/24 03:42 Urine Appearance Cloudy (CLEAR) A 05/02/24 03:42 Urine pH 6.0 (5-7) 05/02/24 03:42 Ur Specific [place] 1.018 (1.005-1.030) 05/02/24 03:42 Urine Protein 2+ (Negative) A 05/02/24 03:42 Urine Glucose (UA) Trace (Normal) H 05/02/24 03:42 Urine Ketones Trace (Negative) 05/02/24 03:42 Urine Blood Negative (Negative) 05/02/24 03:42 Urine Nitrate Negative (Negative) 05/02/24 03:42 Urine Bilirubin Negative (Negative) 05/02/24 03:42 Urine Urobilinogen 1.0 mg/dL (Negative) 05/02/24 03:42 Ur Leukocyte Esterase Trace (Negative) A 05/02/24 03:42 Urine RBC 0-2 /hpf (0-2) 05/02/24 03:42 Urine WBC 11-20 /hpf (0-5) H 05/02/24 03:42 Ur Squamous Epith Cells 11-20 /hpf (0-5) 05/02/24 03:42 Amorphous Sediment Not Reportable 05/02/24 03:42 Urine Bacteria None seen /hpf (NONE) 05/02/24 03:42 Hyaline Casts 56.26 /lpf 05/02/24 03:42 Urine Opiates Screen Negative ng/mL (Negative) 05/02/24 03:42 Ur Barbiturates Screen Negative ng/mL (Negative) 05/02/24 03:42 Ur Phencyclidine Scrn Negative ng/mL (Negative) 05/02/24 03:42 Ur Amphetamines Screen Positive ng/mL (Negative) H 05/02/24 03:42 U Benzodiazepines Scrn Negative ng/mL (Negative) 05/02/24 03:42 Urine Cocaine Screen Negative ng/mL (Negative) 05/02/24 03:42 U Marijuana (THC) Screen Negative ng/mL (Negative) 05/02/24 03:42 Ethyl Alcohol < 10 mg/dL (0-10) 05/01/24 23:30 Micro: Microbiology 05/02/24 01:14 Blood Culture - Preliminary Blood NEGATIVE TO DATE 05/01/24 23:00 Blood Culture - Preliminary Blood NEGATIVE TO DATE A&P Assessment and plan (1) Elevated troponin: The echocardiogram was reviewed. The LV ejection fraction was normal. Is very possible that the patient may have had a type II VT. Possibility of underlying coronary disease cannot be excluded. However she seems to be stable with no specific cardiac symptoms at this point. (2) Hypertension: May continue on the current antihypertensive medications. Qualifiers: Hypertension type: primary hypertension Qualified Code(s): I10 - Essential (primary) hypertension (3) PTSD (post-traumatic stress disorder): May continue on the current management. (4) Obstructive sleep apnea: This may need to be further evaluated with a sleep study to decide on the management. Plan Troponin T on the blood in the lab. If the enzymes are coming down and the patient continues to remain stable, may not require any further urgent intervention. May be discharged home on a baby aspirin and statin drug, in addition to the medications May schedule the patient for an outpatient exercise echo. Will be seen at [facility], by the nurse practitioner Based on the clinical progress, further recommendations will be made Attestations 2 Medical Necessity Statement*: Possible discharge home today Coding Level of Care Code Acute Code for Chg Fwd Diagnoses Elevated troponin R79.89 Primary hypertension I10 Hypertension type: primary hypertension PTSD (post-traumatic stress disorder) F43.10 Obstructive sleep apnea G47.33
[2024-05-03] MEDS: metoprolol tartrate 25 mg Tablet 12.5 MG PO (08:57)
[2024-05-03] MEDS: aspirin 325 mg EC Tablet PO (08:58)
[2024-05-03 09:53] LABS: Troponin T (5th) Once 39 ng/L (0-10)
--- NOTE | 2024-05-03 11:29 | PM.DCS ---
Discharge Providers Date of Admission: 05/02/24 07:35 Date of Discharge: May 03, 2024 Attending Provider at Admission: Carl Olivares MD Attending Provider at Discharge: Felicita Barry MD Primary Care Provider: Tiffany Kimbrough NP Diagnoses at Discharge Discharge Diagnosis (1) Elevated troponin: Status: Acute (2) Hypertension: Status: Acute Qualifiers: Hypertension type: primary hypertension Qualified Code(s): I10 - Essential (primary) hypertension (3) PTSD (post-traumatic stress disorder): Status: Acute (4) Obstructive sleep apnea: Status: Acute Reason for Visit Reason for Visit: Going In and Out Hospital Course Hospital Course Della Davis is a 53 year old female who presented to the emergency department after syncopal episode. She reports after she ate clam chowder, and had a shot of alcohol she started feeling ill. She reports some itching, palmar erythema, feeling as if she needed to go to the bathroom, and nausea. she got to the bathroom, vomited. She is not for sure if she ever had a bowel movement. Family reports she passed out, and then was in and out of it for a while. Seh was tachycardic and hypotensive upon arrival. Troponin significantly elevated, cardiology service was consulted. She was Anticoagulated, received aspirin, beta-vikas, statins. her echocardiogram showed Normal left ventricular size and systolic function, EF 62%. No regional wall motion abnormalities. Trop trended down to 33 today. Symptoms were likely related to allergy/anaphylaxis, or toxin mediated after clam chowder. IL was likely type II related to stress. She is recommended by cardiology to undergo an outpatient stress echo and f/up in 2 weeks which has been ordered. Epi pen has been added at discharge. Physical Exam Narrative: General: No acute distress, AO x3 HEENT: PERRLA, pupils bilaterally equal and reactive, pallors not present Chest: Normal vesicular breath sounds, no added sounds, equal good air entry bilaterally CVS: S1-S2 regular, no murmurs, no tachycardia, no gallops, no rubs Abdomen: Soft, nontender, no organomegaly, bowel sounds present Neuro: No focal deficits, no facial deformity, AO x3, power 5/5 in all limbs Discharge Data Studies Completed and Pending Completed Studies During Hospitalization Category Date Time Status XR chest 1V portable [id number] Stat Exams 05/02/24 00:15 Completed CV. echo complete* [id number] Routine Ultrasound 05/02/24 08:49 Completed Pending at discharge Category Date Time Status Blood Culture Stat Lab 05/01/24 23:46 Results Urinalysis Routine Lab 05/02/24 15:26 Ordered Urine Culture Stat Lab 05/02/24 14:44 Received Radiology Impressions Chest X-Ray 05/02/24 00:15 IMPRESSION: No acute abnormality demonstrated. Laboratory Results WBC 15.61 10^3/uL (3.29-11.43) H 05/03/24 03:31 RBC 4.10 10^6/uL (3.85-5.65) 05/03/24 03:31 Hgb 12.20 g/dL (11.27-16.99) 05/03/24 03:31 Hct 37.0 % (36-47) 05/03/24 03:31 MCV 90.2 fl (85-98) 05/03/24 03:31 MCH 29.8 pg (27-33) 05/03/24 03:31 MCHC 33.0 g/dL (30-55) 05/03/24 03:31 RDW 13.2 % (12.1-15.1) 05/03/24 03:31 Plt Count 255 10^3/cmm (157-399) 05/03/24 03:31 MPV 9.5 fL (7.4-10.4) 05/03/24 03:31 Neut % (Auto) 79.4 % 05/03/24 03:31 Lymph % (Auto) 12.8 % 05/03/24 03:31 [place] % (Auto) 6.0 % 05/03/24 03:31 Eos % (Auto) 1.3 % 05/03/24 03:31 Baso % (Auto) 0.1 % 05/03/24 03:31 Neut # (Auto) 12.37 10^3/uL (1.8-7.7) H 05/03/24 03:31 Lymph # (Auto) 2.0 10^3/uL (0.8-4.8) 05/03/24 03:31 [place] # (Auto) 0.9 10^3/uL (0.2-0.9) 05/03/24 03:31 Eos # (Auto) 0.2 10^3/uL (0.0-0.8) 05/03/24 03:31 Baso # (Auto) 0.0 10^3/uL (0.0-0.1) 05/03/24 03:31 Nucleated RBC % (auto) 0 % 05/03/24 03:31 Nucleated RBCs # 0.0 /100WBC 05/03/24 03:31 Sodium 136 mmol/L (136-145) 05/03/24 03:31 Potassium 3.5 mmol/L (3.5-5.1) 05/03/24 03:31 Chloride 107 mmol/L (98-107) 05/03/24 03:31 Carbon Dioxide 19 mmol/L (22-29) L 05/03/24 03:31 Anion Gap 13.5 (5-19) 05/03/24 03:31 BUN 6 mg/dL (6-20) 05/03/24 03:31 Creatinine 0.5 mg/dL (0.5-0.9) 05/03/24 03:31 GFR Calculation 130.1 mL/min (90-130) H 05/03/24 03:31 Glucose 101 mg/dL (65-115) 05/03/24 03:31 POC Glucose 185 mg/dL (70-110) H 05/01/24 23:21 Estimat Average Glucose 103 05/02/24 05:30 Hemoglobin A1c 5.2 % (4.0-6.0) 05/02/24 05:30 Calculated Osmolality 280 mOsm/kg (285-295) L 05/03/24 03:31 Lactic Acid 4.4 mmol/L (0.5-2.2) H* 05/01/24 23:00 Lactic Acid (Sepsis) 2.6 mmol/L (0.5-2.2) H 05/02/24 01:14 Calcium 7.5 mg/dL (8.5-10.5) L 05/03/24 03:31 Magnesium 1.8 mg/dL (1.7-2.3) 05/03/24 03:31 Total Bilirubin 0.3 mg/dL (0.15-1.2) 05/03/24 03:31 AST 17 U/L (0-32) 05/03/24 03:31 ALT 13 U/L (0-33) 05/03/24 03:31 Alkaline Phosphatase 33 U/L (35-105) L 05/03/24 03:31 Troponin T 5th Gen ng/L 39 ng/L (0-10) H 05/03/24 03:31 Troponin T Baseline 10 ng/L (0-10) 05/01/24 23:30 Troponin T 120 Minute 38.32 ng/L (0-10) H 05/02/24 01:14 Delta Troponin T 28.32 ABS# (0-10) H* 05/02/24 01:14 Troponin T Hi Sens 6Hr 70.80 ng/L (0-10) H 05/02/24 05:30 Troponin T Hi Sens 6Hr Delta 60.80 ng/L (0-12) H* 05/02/24 05:30 Total Protein 5.5 g/dL (6.6-8.7) L 05/03/24 03:31 Albumin 3.2 g/dL (3.5-5.2) L 05/03/24 03:31 Globulin 2.3 g/dL (1.3-4.6) 05/03/24 03:31 Triglycerides 137 mg/dL (0-150) 05/03/24 03:31 Cholesterol 149 mg/dL (0-200) 05/03/24 03:31 LDL Cholesterol, Calc 95 mg/dL (50-129) 05/03/24 03:31 HDL Cholesterol 27 mg/dL (60-100) L 05/03/24 03:31 LDL/HDL Ratio 3.52 RATIO (0.00-3.22) H 05/03/24 03:31 Cholesterol/HDL Ratio 5.52 mg/dL (0.0-4.40) H 05/03/24 03:31 Lipase 24 U/L (13-60) 05/02/24 05:30 Procalcitonin 0.04 ng/mL (0-0.5) 05/01/24 23:00 TSH 1.43 uIU/mL (0.27-4.20) 05/02/24 05:30 Urine Color Dark yellow (Yellow) A 05/02/24 03:42 Urine Appearance Cloudy (CLEAR) A 05/02/24 03:42 Urine pH 6.0 (5-7) 05/02/24 03:42 Ur Specific [place] 1.018 (1.005-1.030) 05/02/24 03:42 Urine Protein 2+ (Negative) A 05/02/24 03:42 Urine Glucose (UA) Trace (Normal) H 05/02/24 03:42 Urine Ketones Trace (Negative) 05/02/24 03:42 Urine Blood Negative (Negative) 05/02/24 03:42 Urine Nitrate Negative (Negative) 05/02/24 03:42 Urine Bilirubin Negative (Negative) 05/02/24 03:42 Urine Urobilinogen 1.0 mg/dL (Negative) 05/02/24 03:42 Ur Leukocyte Esterase Trace (Negative) A 05/02/24 03:42 Urine RBC 0-2 /hpf (0-2) 05/02/24 03:42 Urine WBC 11-20 /hpf (0-5) H 05/02/24 03:42 Ur Squamous Epith Cells 11-20 /hpf (0-5) 05/02/24 03:42 Amorphous Sediment Not Reportable 05/02/24 03:42 Urine Bacteria None seen /hpf (NONE) 05/02/24 03:42 Hyaline Casts 56.26 /lpf 05/02/24 03:42 Urine Opiates Screen Negative ng/mL (Negative) 05/02/24 03:42 Ur Barbiturates Screen Negative ng/mL (Negative) 05/02/24 03:42 Ur Phencyclidine Scrn Negative ng/mL (Negative) 05/02/24 03:42 Ur Amphetamines Screen Positive ng/mL (Negative) H 05/02/24 03:42 U Benzodiazepines Scrn Negative ng/mL (Negative) 05/02/24 03:42 Urine Cocaine Screen Negative ng/mL (Negative) 05/02/24 03:42 U Marijuana (THC) Screen Negative ng/mL (Negative) 05/02/24 03:42 Ethyl Alcohol < 10 mg/dL (0-10) 05/01/24 23:30 Vitals Last Vital Signs Temp 97 F L 05/03/24 11:01 Pulse 72 05/03/24 11:01 Resp 24 H 05/03/24 11:01 BP 167/98 05/03/24 11:01 Pulse Ox 98 05/03/24 11:01 O2 Del Method Room Air 05/03/24 11:01 Discharge Plan Discharge Patient Disposition: Home Condition: Stable Prescriptions: New epinephrine [EpiPen] 0.3 mg/0.3 mL auto-injector 0.3 mg IM Q10M PRN (Reason: anaphylaxis) Qty: 2 1RF Rx Instructions: for 2 doses atorvastatin 40 mg Tablet 40 mg PO BEDTIME 30 Days Qty: 30 0RF metoprolol tartrate 25 mg Tablet 12.5 mg PO BID@0900,2100 30 Days Qty: 60 0RF Continued omeprazole 20 mg capsule,delayed release(DR/EC) 20 mg PO DAILY PRN (Reason: Heartburn) sumatriptan succinate 100 mg tablet See Rx Instructions PO .COMPLEX Rx Instructions: take 1 tab at onset of headache; if no relief, may repeat 1 tab after at least 2 hrs; max = 2 tabs/24 hrs PO alprazolam 0.25 mg tablet 0.25 mg PO BID PRN (Reason: anxiety) 30 Days Qty: 45 4RF diindolylmethane-broccoli seed 150-30 mg Capsule 1 cap PO DAILY ibuprofen [Advil] 200 mg Tablet 600 mg PO Q6H PRN (Reason: Pain) magnesium L-threonate 48 mg magnesium (667 mg) Capsule 48 mg PO DAILY Wellfit 2 capsule 1 cap PO QAM tirzepatide (weight loss) 15 mg/0.5 mL Pen Injector 18 mg SUBCUT Q7D losartan 100 mg tablet 100 mg PO QAM aspirin 325 mg Tablet 325 mg PO DAILY Glucosamine Chondroitin 550-30-1 mg Capsule 2 cap PO QAM Discontinued propranolol 10 mg tablet 10 mg PO TID hydrochlorothiazide 12.5 mg tablet 12.5 mg PO DAILY Qty: 30 0RF Discharge Orders: Discharge Order (Routine); Ordered 05/03/24 Ordered By: Felicita Barry Other Ambulatory Orders: CV. echo stress wo contr [id number] (Routine) Timeframe: 2 Weeks Location: [facility] Ordered By: Felicita Barry Referrals: Tiffany Kimbrough NP [Primary Care Provider] - Mari Castañeda FNP [Nurse Practitioner] - 2 weeks Discharge Diet: As Directed Discharge Activity: Resume usual activity Patient Instructions: Opioid Safety Activity Restrictions/Additional Instructions: maintain BP chart by checking HR and BP twice a day. Take it to your appt with cardiology in 2 weeks. Do not take metorpolol if heart rate is less than 50 or systolic BP (top number) is less than 90. Avoid all shellfish consumption Epi pen has been ordered for anaphylaxis. IF used, present to the ER or call 911 right away Discharge Attestations Time Spent in Discharge Care*: greater than 30 min Quality Metrics Clinical Quality Measures [ Acute Myocardial Infaction { Clinical Trial Participant: No; Contraindication to aspirin: None; Aspirin prescribed; Contraindication to statin: None; Statin prescribed; Contraindication to PCI: Intervention not indicated;}] Coding Level of Care Code Acute Code for Chg Fwd Diagnoses Elevated troponin R79.89 Primary hypertension I10 Hypertension type: primary hypertension PTSD (post-traumatic stress disorder) F43.10 Obstructive sleep apnea G47.33
== END 2024-05-03 12:30 | disposition home or self-care (01) ==
LOC: ER 05-02 06:39 → ICU 05-02 08:27
PROVIDERS: Internal Medicine Cardiovascular Disease; Admitting Provider Internal Medicine; Emergency Provider Emergency Medicine; PCP Nurse Practitioner Family; Visit Provider Student in an Organized Health Care Education/Training Program
DX: I95.9 Hypotension, unspecified (principal); I10 Essential (primary) hypertension; F43.10 Post-traumatic stress disorder, unspecified; R00.0 Tachycardia, unspecified; G47.33 Obstructive sleep apnea (adult) (pediatric); T68.XXXA Hypothermia, initial encounter
CPT/HCPCS: 36415; 36416; 71045; 80048; 80053; 80061; 80306; 80307; 81001; 82962; 83036; 83605; 83690; 83735; 84145; 84443; 84484; 85025; 87040; 87086; 93005; 93306; 96361; 96365; 96372; 96375; 96376; 99285; G0378; J0360; J1650; J1885; J2270; J2405; J2543; J3490; J7030

== ENCOUNTER 2024-06-17 12:38 | Outpatient (CLI) | payer OTHER, SELFPAY ==
--- NOTE | 2024-06-17 | ECG_ITS ---
[facility] Pat Name: Della Davis Department: Room: Gender: Female Telephone Station Installer: : 1970 Requested By: Felicita Barry Order Number: [id number] Reading MD: JULIEN SAAVEDRA Interpretive Statements Lung unchanged pre/post procedure; Intraprocedure shortess of breath; Symptoms resoled by discharge EXERCISE DATA: The patient was exercised by Elton protocol. Baseline heart rate was 87 beats per minute. Baseline blood pressure was 162/104 millimeters of mercury. Target heart rate was 168 beats per minute. Maximum heart rate achieved was 203, which was 120% of the target heart rate. Maximum blood pressure was 196/120 millimeters of mercury. Total exercise time was 5 minutes. Maximum METs achieved was 7.0, maximum VO2 was 24.5. The reason for ending the test was maximum effort achieved. The patient complained of shortness of breath during the stress test, which then resolved at the end of the test. ELECTROCARDIOGRAM: BASELINE: Showed sinus rhythm, normal axis, no significant ST-T changes at the baseline noted. EXERCISE: At the peak exercise level, no significant ST-T changes suggestive of ischemia noted. RECOVERY: During the recovery period, heart rate dropped appropriately. No significant ST-T changes in the recovery suggestive of ischemia noted. CONCLUSION: 1. Exercise capacity poor 2. Heart rate response was tachycardic. 3. Blood pressure response was hypertensive. 4. Symptoms not suggestive of ischemia. 5. Electrocardiogram portion of the stress test was not suggestive of ischemia. Electronically Signed On 06-28-2024 20:45:02 [employer] by JULIEN SAAVEDRA [email or web address]
--- NOTE | 2024-06-17 13:02 | USCV_ITS ---
Stress Echo Della Davis Age: 54 Gender: F : 1970 Exam Date: 06/17/2024 13:29 Ordering Phys: Felicita Barry MD Technologist: Exam Location: [facility] [place] Indication: Angina, Elevated troponin Rhythm: Sinus Patient History: HTN, Family HX heart disease Cardiac Medications: Losartan 100mg QD, Propranolol Medications in past 24 hours: Losartan Contrast: Stress Results Protocol: Elton Total dose(mL): Exercise Duration (min:sec): 5:00 METS: 7 Resting HR: 93 Resting BP: 162 / 104 Peak HR: 203 Peak BP: 196 / 120 Max Predicted HR: 168 121 % Max Predicted HR Target HR: 143 Double Product: 13450 Stress Summary: The patient's target heart rate was achieved BP Response: Normal Reason for Termination: Test terminated after reaching maximum heart rate Cardiac Symptoms: Short of Breath ECG Analysis Resting ECG: Stress ECG: Arrhythmia: MEASUREMENTS (Male/Female) Normal Values FINDINGS Baseline echocardiogram: Normal left ventricular ejection fraction no wall motion abnormality, estimated ejection fraction 60% Peak exercise: Augmentation of cavity was good, left ventricle ejection fraction increased, there was no wall motion abnormality. Recovery: Uneventful there is no wall motion abnormality CONCLUSIONS Echocardiographic portion of the stress EKG was normal and not suggestive of ischemia. Rayo Gant MD (Electronically Signed) Final Date: 18 June 2024 21:41 S
[2024-06-17 13:04] VITALS: BMI 30.5
[2024-06-17 13:51] VITALS: BP 158/94; PULSE 97
== END 2024-06-17 12:39 | disposition home or self-care (01) ==
LOC: CDL 12:41
PROVIDERS: PCP Nurse Practitioner Family; Visit Provider Student in an Organized Health Care Education/Training Program
DX: R79.89 Other specified abnormal findings of blood chemistry (principal); Z82.49 Family history of ischemic heart disease and other diseases of the circulatory system; R00.0 Tachycardia, unspecified; R93.89 Abnormal findings on diagnostic imaging of other specified body structures
CPT/HCPCS: 93017; 93350

== ENCOUNTER 2024-07-07 14:41 | Outpatient (CLI) | payer OTHER, SELFPAY ==
--- NOTE | 2024-07-07 14:51 | MM_ITS ---
WS: [id number] BILATERAL 3D TOMOSYNTHESIS DIGITAL SCREENING MAMMOGRAPHY WITH CAD CLINICAL INFORMATION: SCREENING HISTORY: Screening mammogram. No current complaints. COMPARISON: 2018 and 2019 TECHNIQUE: Bilateral CC and MLO views. FINDINGS: Bilateral breast implants appear intact. Calcified granulomas inferior RIGHT breast Scattered fibroglandular densities bilaterally. No suspicious focal mass, asymmetry, calcifications, or architectural distortion. No evidence of malignancy. MM/MM [facility] tomosynthesis [id number] IMPRESSION: DENSITY: There are scattered areas of fibroglandular density. BI-RADS: 2 - Benign. FOLLOW UP: 1 Year Follow-up Recommend return to annual screening mammography.
== END 2024-07-07 14:42 | disposition home or self-care (01) ==
PROVIDERS: PCP Nurse Practitioner Family; Visit Provider Nurse Practitioner Family
DX: Z12.31 Encounter for screening mammogram for malignant neoplasm of breast (principal); Z98.82 Breast implant status; L92.8 Other granulomatous disorders of the skin and subcutaneous tissue; R92.323 Mammographic fibroglandular density, bilateral breasts
CPT/HCPCS: 77063; 77067

== ENCOUNTER 2024-08-05 08:57 | Day surgery (SDC) | payer OTHER, SELFPAY ==
[2024-08-05 09:28] VITALS: BP 172/135; PULSE 82; RESP 16; TEMP 36.6; O2SAT 96; BMI 29.7
[2024-08-05] MEDS: sodium chloride 0.9% 500 ML 15 ML IV (09:32)
--- NOTE | 2024-08-05 09:56 | ANES.PREANE2 ---
Pre-Anesthetic Assessment Height/Weight: Height 1.83 m Weight 99.337 kg Temp Pulse Resp BP Pulse Ox O2 Del Method 97.8 F 82 16 172/135 96 Room Air 08/05/24 09:28 08/05/24 09:28 08/05/24 09:28 08/05/24 09:28 08/05/24 09:28 08/05/24 09:28 Operation Date: 08/05/24 10:15 Proposed Procedures p Colonoscopy [id number] [id number] Z12.11(Not Applicable) - Cortez Pacheco MD Familial anesthetic complications: None Was Beta Matteo taken within 24 hours: N/A Was Clonidine taken within 24 hours: N/A Last intake: Intake Last Liquid Date 08/04/24 Last Liquid Time 20:00 Last Solid Date 08/03/24 Last Solid Time 18:00 Social No alcohol and No tobacco Exam alert, oriented x 3, clear to auscultation bilaterally and regular rate & rhythm Airway Mallampati: Class II Dentition: other (missing) Pulmonary Sleep Apnea CV/HEM Hypertension and Myocardial Infarction (NSTEMI w/ subsequent negative stress test and normal echo - episode of elevated troponins thought to be due to ingestion of large amounts of shellfish) GI Gastroesophageal Reflux Disease Anesthetic Plan ASA status: 2 Anesthesia: MAC Risk of > 500 ml blood loss (7ml/kg in children): No Medications/Allergies Home Medications ?Medication ?Instructions ?Recorded ?Confirmed ?Last Taken ?Type omeprazole 20 mg capsule,delayed 20 mg PO DAILY PRN Heartburn 09/30/20 07/31/24 Unknown History release sumatriptan succinate 100 mg tablet See Rx Instructions PO .COMPLEX 07/04/21 07/31/24 Unknown History glucosamine sulf dipot 2 cap PO QAM 04/07/23 07/31/24 07/29/24 History chlr,msm,chond 550 mg-C 30 mg-ina 1 mg capsule (Glucosamine Chondroitin) losartan 100 mg tablet 100 mg PO QAM 04/07/23 07/31/24 07/31/24 History alprazolam 0.25 mg tablet 0.25 mg PO BID PRN anxiety 30 days 11/13/23 07/31/24 Unknown Rx #45 tabs Wellfit 2 1 cap PO QAM 05/02/24 07/31/24 07/29/24 History ibuprofen 200 mg tablet (Advil) 600 mg PO Q6H PRN Pain 05/02/24 07/31/24 05/01/24 History magnesium L-threonate 48 mg 48 mg PO DAILY 05/02/24 07/31/24 07/29/24 History magnesium (667 mg) capsule tirzepatide (weight loss) 15 18 mg SUBCUT Q7D 05/02/24 07/31/24 07/29/24 History mg/0.5 mL subcutaneous pen injector epinephrine 0.3 mg/0.3 mL 0.3 mg (0.3 mL) IM Q10M PRN 05/03/24 07/31/24 Unknown Rx injection, auto-injector (EpiPen) anaphylaxis #2 ea aspirin 81 mg tablet,delayed 81 mg PO DAILY 07/21/24 07/31/24 07/31/24 History release Allergies Allergy/AdvReac Type Severity Reaction Status Date / Time hydrocodone AdvReac Severe ADR-Vomitin Verified 07/31/24 10:54 g Current Medications Generic Name Dose Route Start Last Admin Trade Name Freq PRN Reason Stop Dose Admin Sodium Chloride 500 mls @ 15 mls/hr 08/05/24 09:02 08/05/24 09:32 Sodium Chloride 0.9% IV 08/06/24 09:01 15 mls/hr .Q24H PRN Administration COLONOSCOPY FLUIDS PFSH Anesthesia Medical History Problems related to lack of adequate sleep PTSD (post-traumatic stress disorder) HTN (hypertension) Allergic rhinitis Herpes simplex type 1 infection Breast mass Surgical History History of hysterectomy H/O abdominoplasty H/O breast augmentation Family History Mother Hypertension Father Hypertension Grandmother Diabetes Heart disease Social History Smoking and tobacco/nicotine status: never used tobacco/nicotine Second hand smoke exposure: No Alcohol intake: current Alcohol intake frequency: few times a week Substance/Drug Use: never Lives independently: Yes Household members: spouse Marital status: Current occupational status: unemployed Do you think of yourself as: Straight/Heterosexual Current gender identity: Female Data Anesthesia Cardiac Studies: Echocardiogram 05/02/24 Stress Echocardiogram 06/17/24
--- NOTE | 2024-08-05 10:31 | W.PM.OPSUD ---
Surgery/Procedure H&P Update DATE OF PROCEDURE: August 05, 2024 DATE H&P PERFORMED: 07/21/24 H&P UPDATE INFORMATION: I have reviewed H&P completed within last 30 days, I have examined patient prior to procedure and No changes to prior documentation PLANNED PROCEDURE: Operation Date: 08/05/24 10:15 Proposed Procedures p Colonoscopy [id number] G0121 Z12.11(Not Applicable) - Cortez Pacheco MD
[2024-08-05 11:03] VITALS: BP 141/99; PULSE 76; RESP 18; TEMP 36.2; O2SAT 94
[2024-08-05 11:13] VITALS: BP 146/103; PULSE 69; O2SAT 100
--- NOTE | 2024-08-05 11:35 | ANE.PACU2 ---
Inpatient post-anesthesia follow up: Airway intact: Yes Vital signs: Temperature 97.2 F Pulse Rate 69 Respiratory Rate 18 Blood Pressure 146/103 Pulse Oximetry 100 Oxygen Delivery Me thod Room Air Oxygen Flow Rate Fraction of Inspir ed Oxygen Hydration adequate: Yes Nausea and vomiting: No Pain level: 1 Mental status: Baseline
== END 2024-08-05 11:35 | disposition home or self-care (01) ==
PROVIDERS: PCP Nurse Practitioner Family; Visit Provider Student in an Organized Health Care Education/Training Program
PROC: 0DJD8ZZ Inspection of Lower Intestinal Tract, Via Natural or Artificial Opening Endoscopic (ICD-10-PCS; CPT 45378; principal; 2024-08-05 10:15)
DX: Z12.11 Encounter for screening for malignant neoplasm of colon (principal); C18.7 Malignant neoplasm of sigmoid colon; I10 Essential (primary) hypertension; I25.2 Old myocardial infarction; K21.9 Gastro-esophageal reflux disease without esophagitis; Z79.899 Other long term (current) drug therapy; Z79.82 Long term (current) use of aspirin; Z88.5 Allergy status to narcotic agent
CPT/HCPCS: 45380; 88305; J2704; J7040

== ENCOUNTER 2024-08-18 10:17 | Oncology outpatient (recurring) (ONCR) | payer OTHER, SELFPAY ==
[2024-08-18 11:04] LABS: Basophils % 0.6 %; Eosinophils # 0.6 10^3/uL (0.0-0.8); Eosinophils % 8.3 %; Hematocrit 40.5 % (36-47); Lymphocytes # 1.5 10^3/uL (0.8-4.8); Lymphocytes % 21.1 %; Mean Corpuscular HGB Conc 32.8 g/dL (30-55); Mean Corpuscular Hemoglobin 29.8 pg (27-33); Mean Corpuscular Volume 90.6 fl (85-98); Mean Platelet Volume 9.8 fL (7.4-10.4); Monocytes # 0.6 10^3/uL (0.2-0.9); Neutrophils # 4.31 10^3/uL (1.8-7.7); Neutrophils % 61.7 %; Nucleated Red Blood Cells % 0 %; Platelet Count 313 10^3/cmm (157-399); Red Blood Count 4.47 10^6/uL (3.85-5.65); Red Cell Distribution Width 13.6 % (12.1-15.1); White Blood Count 6.98 10^3/uL (3.29-11.43)
[2024-08-18 11:31] LABS: Alanine Aminotransferase 18 U/L (0-33); Albumin Level 4.1 g/dL (3.5-5.2); Alkaline Phosphatase 53 U/L (35-105); Aspartate Amino Transferase 16 U/L (0-32); Blood Urea Nitrogen 11 mg/dL (6-20); Calcium 9.2 mg/dL (8.5-10.5); Carbon Dioxide 23 mmol/L (22-29); Chloride 101 mmol/L (98-107); Glucose 96 mg/dL (65-115); Osmolality Calculated 283 mOsm/kg (285-295); Sodium 137 mmol/L (136-145); Total Bilirubin 0.2 mg/dL (0.15-1.2); Total Protein 7.1 g/dL (6.6-8.7)
== END 2024-08-18 23:59 | disposition home or self-care (01) ==
PROVIDERS: Orthopaedic Surgery; PCP Nurse Practitioner Family; Visit Provider Internal Medicine Medical Oncology
DX: C18.7 Malignant neoplasm of sigmoid colon (principal)
CPT/HCPCS: 36415; 80053; 82378; 85025

== ENCOUNTER 2024-08-21 09:10 | Outpatient (CLI) | payer OTHER, SELFPAY ==
--- NOTE | 2024-08-21 09:25 | CT_ITS ---
WS: [id number] CT CHEST, ABDOMEN AND PELVIS WITH CONTRAST HISTORY: MALIGNANT NEOPLASM OF SIGMOID COLON TECHNIQUE: Contiguous 5 mm axial imaging performed through the chest, abdomen and pelvis with IV contrast, oral contrast has been provided. Coronal and sagittal reformats chest. Coronal and sagittal reformats through the abdomen and pelvis. All CT scans at [facility] use at least one of these dose optimization techniques: automated exposure control; mA and/or kV adjustment per patient size (includes targeted exams where dose is matched to clinical indication); or iterative reconstruction. CONTRAST: Omnipaque 350; 100 mL IV. DLP: 1264.57 mGy.cm COMPARISON: None available. Chest CT: Lungs are clear. No pulmonary mass or nodule. No pericardial or pleural effusions. Normal sized thoracic aorta and pulmonary artery. No mediastinal or hilar adenopathy. Bilateral breast implants. No axillary lymphadenopathy. Partially calcified RIGHT breast mass is reidentified and was noted on a prior mammogram. Abdomen CT: Normal size liver and spleen. No metastatic lesions. Normal portal vein. No intrahepatic duct dilatation. Normal gallbladder and adrenal glands. Normal pancreas. Normal enhancement of both kidneys. No renal mass or obstruction. Mild atherosclerosis aorta. Mesenteric arteries are normally op acified. Stomach is normally distended. No small bowel obstruction. Normal appendix. No obstructing colon lesions. Scattered sigmoid diverticulosis. Patient has a known sigmoid neoplasm. Narrowing of the lumen and a very subtle soft tissue mass with wall thickening noted close to the rectosigmoid junction. This may or may not be the lesion that was described and biopsied during colonoscopy. No ascites. No adenopathy. Pelvic CT: No free fluid. Normally distended urinary bladder. Prior hysterectomy. Moderate degenerative disc disease at L5-S1. Mild straightening of the normal thoracic kyphosis. CT/CT chest abdpel w/*[id number] IMPRESSION: 1. No metastatic pulmonary nodules. 2. No lymphadenopathy within the chest, abdomen or pelvis. 3. No metastatic disease in the liver or adrenal glands. 4. No ascites. 5. Sigmoid diverticulosis without acute diverticulitis. 6. Short segment area of asymmetric wall thickening involving the distal sigmo id colon. This may be the biopsy-proven neoplasm. This is a very subtle area of wall thickening. A larger obstructing lesion is not identified. No adjacent ad enopathy. 7. Prior hysterectomy.
[2024-08-21] MEDS: iohexol 350 mg/mL 500 mL Btl (per mL) PO (10:57)
[2024-08-21] MEDS: iohexol 350 mg/mL 500 mL Btl (per mL) IV (10:59)
== END 2024-08-21 09:11 | disposition home or self-care (01) ==
LOC: RAD 09:10
PROVIDERS: PCP Nurse Practitioner Family; Visit Provider Nurse Practitioner Adult Health
DX: C18.7 Malignant neoplasm of sigmoid colon (principal); K57.30 Diverticulosis of large intestine without perforation or abscess without bleeding; K63.89 Other specified diseases of intestine; Z90.710 Acquired absence of both cervix and uterus; Z98.82 Breast implant status; N63.10 Unspecified lump in the right breast, unspecified quadrant; I70.0 Atherosclerosis of aorta; M51.379 Other intervertebral disc degeneration, lumbosacral region without mention of lumbar back pain or lower extremity pain; R93.7 Abnormal findings on diagnostic imaging of other parts of musculoskeletal system
CPT/HCPCS: 71260; 74177